=== PATIENT | female | born 1945 | race Caucasian/White ===

== ENCOUNTER → 2019-08-12 17:30 | Outpatient (CLI) | payer MEDICARE, BC, SELFPAY ==
[2019-08-12 18:13] LABS: AST(SGOT) 23 U/L (15-37); Absolute Lymphocyte Count 2.89 X10^3/uL (0.83-4.51); Absolute Neutrophil Count 4.2 X10^3/uL (2.0-7.7); Alanine Aminotransfer ALT/SGPT 30 U/L (13-56); Alkaline Phosphatase 111 U/L (45-117); Anion Gap 5 (5-15); BUN 18 mg/dL (7-18); Basophil# 0.08 X10^3/uL; Calcium,Total 9.3 mg/dL (8.5-10.1); Chloride 105 mmol/L (98-107); Creatinine, Serum 0.75 mg/dL (0.55-1.02); EST Glomerular Filtration Rate 80 mL/min (>60); Eosinophil# 0.21 X10^3/uL; Eosinophils% 2.6 % (0-5); Est Glom Filt Rate - Afr Amer 97 mL/min (>60); Glucose 92 mg/dL (74-106); Hematocrit 46.5 % (37-47); Hemoglobin 15.3 g/dL (12.0-15.0); Lymphocyte # 2.89 X10^3/ul (4.0); Lymphocyte % 35.6 % (19-41); Mean Corp Hgb Conc 32.9 g/dL (32-36); Mean Corpuscular Hgb 30.9 pg (27.0-32.0); Mean Corpuscular Volume 93.9 fL (81-99); Mean Platelet Vol. 11.4 fl (6.2-12.0); Monocyte# 0.73 X10^3/uL; NRBC Flagged by Analyzer 0 % (0-5); Neutrophil # 4.19 X10^3/uL (2.7-7.7); Neutrophil % 51.6 % (47-70); Platelet Count 243 K/mm3 (150-450); Potassium 3.9 mmol/L (3.5-5.1); RBC Distribution Width CV 12.6 % (11.6-14.6); RBC Distribution Width SD 43.6 fl (35.1-43.9); Red Blood Count 4.95 M/mm3 (4.2-5.4); Sodium Level 140 mmol/L (136-145); White Blood Count 8.1 K/mm3 (4.4-11.0)
[2019-08-13 09:43] LABS: Hepatitis C Antibody Non-Reactive (Nonreactive)
== END ==
PROVIDERS: Visit Provider Family Medicine Geriatric Medicine
DX: R53.83 Other fatigue (principal); Z13.89 Encounter for screening for other disorder
CPT/HCPCS: 36415; 80053; 84443; 85025; 86803

== ENCOUNTER → 2019-08-25 10:22 | Outpatient (CLI) | payer MEDICARE, BC, SELFPAY ==
[2019-08-25 12:32] LABS: Erythrocyte Sedimentation Rate 22 mm/hr (0-30)
[2019-08-25 12:42] LABS: Absolute Neutrophil Count 4.3 X10^3/uL (2.0-7.7); Basophil# 0.08 X10^3/uL; Basophil% 1.1 % (0-1); Eosinophil# 0.14 X10^3/uL; Eosinophils% 1.9 % (0-5); Hematocrit 45.7 % (37-47); Lymphocyte % 30.1 % (19-41); Mean Corp Hgb Conc 32.8 g/dL (32-36); Mean Corpuscular Hgb 30.9 pg (27.0-32.0); Mean Platelet Vol. 11.8 fl (6.2-12.0); Monocyte# 0.63 X10^3/uL; Monocyte% 8.6 % (0-10); NRBC Flagged by Analyzer 0 % (0-5); Neutrophil # 4.25 X10^3/uL (2.7-7.7); Platelet Count 237 K/mm3 (150-450); RBC Distribution Width CV 12.6 % (11.6-14.6); RBC Distribution Width SD 43.1 fl (35.1-43.9); Red Blood Count 4.86 M/mm3 (4.2-5.4); White Blood Count 7.3 K/mm3 (4.4-11.0)
[2019-08-25 12:53] LABS: ALB/GLOB Ratio 1.3 RATIO (0.9-2.4); AST(SGOT) 23 U/L (15-37); Alanine Aminotransfer ALT/SGPT 34 U/L (13-56); Albumin, Serum 4.3 g/dL (3.2-5.0); Alkaline Phosphatase 101 U/L (45-117); Anion Gap 8 (5-15); BUN 21 mg/dL (7-18); BUN/Creat Ratio 31.6 RATIO (10-20); CRP < 2.90 mg/L (0.0-3.0); Calcium,Total 9.4 mg/dL (8.5-10.1); Chloride 105 mmol/L (98-107); Creatinine, Serum 0.66 mg/dL (0.55-1.02); EST Glomerular Filtration Rate 92 mL/min (>60); Est Glom Filt Rate - Afr Amer 112 mL/min (>60); Globulin 3.4 g/dL (2.2-4.2); Glucose 87 mg/dL (74-106); Potassium 4.1 mmol/L (3.5-5.1); Protein, Total 7.7 g/dL (6.4-8.2); Rheumatoid Factor < 10.0 IU/mL (<15); Sodium Level 140 mmol/L (136-145)
[2019-08-25 13:23] LABS: Hepatitis B Surface Antibody Non-Reactive; Hepatitis B Surface Antigen Non-Reactive (Nonreactive); Hepatitis C Antibody Non-Reactive (Nonreactive)
[2019-08-26 19:13] LABS: SJOGREN'S Anti-SS-A test < 0.2 AI (0.0-0.9); SJOGREN'S Anti-SS-B test < 0.2 AI (0.0-0.9)
[2019-08-27 13:11] LABS: CCP IgG Antibodies 7 units (0-19); Hepatitis B Core AB IgM Negative (Negative)
[2019-08-27 13:18] LABS: ANTINUCLEAR ANTIBODIES DIRECT Negative (Negative)
== END ==
PROVIDERS: Family Provider Family Medicine Geriatric Medicine; PCP Family Medicine Geriatric Medicine; Referring Provider Internal Medicine Rheumatology; Visit Provider Internal Medicine Rheumatology
DX: M06.4 Inflammatory polyarthropathy (principal); M19.041 Primary osteoarthritis, right hand; M17.0 Bilateral primary osteoarthritis of knee; M47.897 Other spondylosis, lumbosacral region; K21.9 Gastro-esophageal reflux disease without esophagitis
CPT/HCPCS: 36415; 80053; 85025; 85652; 86038; 86140; 86200; 86235; 86431; 86705; 86706; 86803; 87340

== ENCOUNTER → 2019-10-06 09:37 | Outpatient (CLI) | payer MEDICARE, BC, SELFPAY ==
[2019-10-06 10:34] LABS: Thyroid Stim Hormone (TSH) 0.16 uIU/mL (0.358-3.74)
== END ==
PROVIDERS: Family Provider Family Medicine Geriatric Medicine; PCP Family Medicine Geriatric Medicine; Visit Provider Family Medicine Geriatric Medicine
DX: E03.9 Hypothyroidism, unspecified (principal)
CPT/HCPCS: 36415; 84443

== ENCOUNTER → 2019-10-20 09:25 | Outpatient (CLI) | payer MEDICARE, BC, SELFPAY ==
[2019-10-20 12:34] LABS: ALB/GLOB Ratio 1.1 RATIO (0.9-2.4); AST(SGOT) 23 U/L (15-37); Alanine Aminotransfer ALT/SGPT 36 U/L (13-56); Albumin, Serum 3.9 g/dL (3.2-5.0); Alkaline Phosphatase 93 U/L (45-117); Anion Gap 7 (5-15); BUN 23 mg/dL (7-18); BUN/Creat Ratio 34.1 RATIO (10-20); Calcium,Total 9.4 mg/dL (8.5-10.1); Chloride 108 mmol/L (98-107); Creatinine, Serum 0.67 mg/dL (0.55-1.02); EST Glomerular Filtration Rate 91 mL/min (>60); Est Glom Filt Rate - Afr Amer 110 mL/min (>60); Globulin 3.6 g/dL (2.2-4.2); Glucose 106 mg/dL (74-106); Potassium 3.8 mmol/L (3.5-5.1); Protein, Total 7.5 g/dL (6.4-8.2); Sodium Level 142 mmol/L (136-145); Thyroid Stim Hormone (TSH) 0.26 uIU/mL (0.358-3.74)
[2019-10-20 12:36] LABS: Absolute Lymphocyte Count 2.25 X10^3/uL (0.83-4.51); Basophil# 0.07 X10^3/uL; Eosinophils% 2.8 % (0-5); Hematocrit 44.8 % (37-47); Hemoglobin 14.5 g/dL (12.0-15.0); Lymphocyte # 2.25 X10^3/ul (4.0); Lymphocyte % 31.4 % (19-41); Mean Corp Hgb Conc 32.4 g/dL (32-36); Mean Corpuscular Hgb 30.7 pg (27.0-32.0); Mean Corpuscular Volume 94.7 fL (81-99); Mean Platelet Vol. 11.8 fl (6.2-12.0); Monocyte# 0.65 X10^3/uL; Monocyte% 9.1 % (0-10); NRBC Flagged by Analyzer 0 % (0-5); Neutrophil # 3.98 X10^3/uL (2.7-7.7); Neutrophil % 55.4 % (47-70); Platelet Count 236 K/mm3 (150-450); RBC Distribution Width CV 13.5 % (11.6-14.6); RBC Distribution Width SD 46.9 fl (35.1-43.9); Red Blood Count 4.73 M/mm3 (4.2-5.4); White Blood Count 7.2 K/mm3 (4.4-11.0)
== END ==
PROVIDERS: Family Provider Family Medicine Geriatric Medicine; PCP Family Medicine Geriatric Medicine; Referring Provider Family Medicine Geriatric Medicine; Visit Provider Family Medicine Geriatric Medicine
DX: E03.9 Hypothyroidism, unspecified (principal); M06.4 Inflammatory polyarthropathy; M19.041 Primary osteoarthritis, right hand; M17.0 Bilateral primary osteoarthritis of knee
CPT/HCPCS: 36415; 80053; 84443; 85025

== ENCOUNTER → 2020-04-14 13:24 | Outpatient (CLI) | payer MEDICARE, BC, SELFPAY ==
[2020-04-14 15:54] LABS: Absolute Lymphocyte Count 2.13 X10^3/uL (0.83-4.51); Absolute Neutrophil Count 4.5 X10^3/uL (2.0-7.7); Basophil# 0.09 X10^3/uL; Basophil% 1.2 % (0-1); Eosinophil# 0.27 X10^3/uL; Eosinophils% 3.5 % (0-5); Hematocrit 43.7 % (37-47); Hemoglobin 14.2 g/dL (12.0-15.0); Lymphocyte # 2.13 X10^3/ul (4.0); Lymphocyte % 27.4 % (19-41); Mean Corp Hgb Conc 32.5 g/dL (32-36); Mean Corpuscular Hgb 30.8 pg (27.0-32.0); Mean Corpuscular Volume 94.8 fL (81-99); Mean Platelet Vol. 11.8 fl (6.2-12.0); Monocyte# 0.75 X10^3/uL; Monocyte% 9.6 % (0-10); NRBC Flagged by Analyzer 0 % (0-5); Neutrophil # 4.52 X10^3/uL (2.7-7.7); Platelet Count 266 K/mm3 (150-450); RBC Distribution Width CV 13.5 % (11.6-14.6); RBC Distribution Width SD 46.3 fl (35.1-43.9); Red Blood Count 4.61 M/mm3 (4.2-5.4); White Blood Count 7.8 K/mm3 (4.4-11.0)
[2020-04-14 16:09] LABS: Vitamin D,25 Hydroxy 79.5 ng/mL
[2020-04-14 16:22] LABS: AST(SGOT) 26 U/L (15-37); Alanine Aminotransfer ALT/SGPT 42 U/L (13-56); Albumin, Serum 3.9 g/dL (3.2-5.0); Alkaline Phosphatase 96 U/L (45-117); Anion Gap 8 (5-15); BUN 23 mg/dL (7-18); BUN/Creat Ratio 30.3 RATIO (10-20); Calcium,Total 9.4 mg/dL (8.5-10.1); Chloride 106 mmol/L (98-107); Creatinine, Serum 0.76 mg/dL (0.55-1.02); EST Glomerular Filtration Rate 79 mL/min (>60); Est Glom Filt Rate - Afr Amer 96 mL/min (>60); Globulin 3.9 g/dL (2.2-4.2); Glucose 109 mg/dL (74-106); Potassium 3.8 mmol/L (3.5-5.1); Protein, Total 7.8 g/dL (6.4-8.2); Sodium Level 140 mmol/L (136-145); Thyroid Stim Hormone (TSH) 0.08 uIU/mL (0.358-3.74)
== END ==
PROVIDERS: PCP Family Medicine Geriatric Medicine; Visit Provider Family Medicine Geriatric Medicine
DX: E55.9 Vitamin D deficiency, unspecified (principal); I10 Essential (primary) hypertension
CPT/HCPCS: 36415; 80053; 82306; 84443; 85025

== ENCOUNTER → 2020-05-17 15:19 | Outpatient (CLI) | payer MEDICARE, BC, SELFPAY ==
[2020-05-17 18:00] LABS: ALB/GLOB Ratio 1.1 RATIO (0.9-2.4); AST(SGOT) 21 U/L (15-37); Alanine Aminotransfer ALT/SGPT 36 U/L (13-56); Albumin, Serum 3.8 g/dL (3.2-5.0); Alkaline Phosphatase 87 U/L (45-117); Anion Gap 5 (5-15); BUN 20 mg/dL (7-18); BUN/Creat Ratio 30.1 RATIO (10-20); Calcium,Total 8.9 mg/dL (8.5-10.1); Chloride 105 mmol/L (98-107); Creatinine, Serum 0.66 mg/dL (0.55-1.02); EST Glomerular Filtration Rate 92 mL/min (>60); Est Glom Filt Rate - Afr Amer 112 mL/min (>60); Globulin 3.5 g/dL (2.2-4.2); Glucose 117 mg/dL (74-106); Potassium 3.7 mmol/L (3.5-5.1); Protein, Total 7.3 g/dL (6.4-8.2); Sodium Level 138 mmol/L (136-145)
[2020-05-17 18:13] LABS: Absolute Lymphocyte Count 2.45 X10^3/uL (0.83-4.51); Absolute Neutrophil Count 4.3 X10^3/uL (2.0-7.7); Basophil# 0.06 X10^3/uL; Basophil% 0.8 % (0-1); Eosinophil# 0.25 X10^3/uL; Eosinophils% 3.3 % (0-5); Hematocrit 43.3 % (37-47); Hemoglobin 13.8 g/dL (12.0-15.0); Lymphocyte # 2.45 X10^3/ul (4.0); Lymphocyte % 31.9 % (19-41); Mean Corp Hgb Conc 31.9 g/dL (32-36); Mean Corpuscular Hgb 30.8 pg (27.0-32.0); Mean Corpuscular Volume 96.7 fL (81-99); Mean Platelet Vol. 11.8 fl (6.2-12.0); Monocyte# 0.61 X10^3/uL; Monocyte% 7.9 % (0-10); NRBC Flagged by Analyzer 0 % (0-5); Neutrophil # 4.31 X10^3/uL (2.7-7.7); Platelet Count 245 K/mm3 (150-450); RBC Distribution Width SD 49.4 fl (35.1-43.9); Red Blood Count 4.48 M/mm3 (4.2-5.4); White Blood Count 7.7 K/mm3 (4.4-11.0)
== END ==
PROVIDERS: PCP Family Medicine Geriatric Medicine; Referring Provider Internal Medicine Rheumatology; Visit Provider Internal Medicine Rheumatology
DX: M06.4 Inflammatory polyarthropathy (principal); Z79.899 Other long term (current) drug therapy; M19.041 Primary osteoarthritis, right hand; M17.0 Bilateral primary osteoarthritis of knee; K21.9 Gastro-esophageal reflux disease without esophagitis; E03.9 Hypothyroidism, unspecified; I10 Essential (primary) hypertension; F32.9 Major depressive disorder, single episode, unspecified; M47.897 Other spondylosis, lumbosacral region
CPT/HCPCS: 36415; 80053; 85025

== ENCOUNTER → 2020-08-17 14:09 | Outpatient (CLI) | payer MEDICARE, BC, SELFPAY ==
[2020-08-17 18:21] LABS: Absolute Lymphocyte Count 2.11 X10^3/uL (0.83-4.51); Absolute Neutrophil Count 4.4 X10^3/uL (2.0-7.7); Basophil# 0.08 X10^3/uL; Basophil% 1.1 % (0-1); Eosinophil# 0.23 X10^3/uL; Eosinophils% 3.1 % (0-5); Hematocrit 44.9 % (37-47); Hemoglobin 14.3 g/dL (12.0-15.0); Lymphocyte # 2.11 X10^3/ul (4.0); Lymphocyte % 28.2 % (19-41); Mean Corp Hgb Conc 31.8 g/dL (32-36); Mean Corpuscular Hgb 31.3 pg (27.0-32.0); Mean Corpuscular Volume 98.2 fL (81-99); Mean Platelet Vol. 11.9 fl (6.2-12.0); Monocyte# 0.61 X10^3/uL; Monocyte% 8.2 % (0-10); NRBC Flagged by Analyzer 0 % (0-5); Neutrophil # 4.42 X10^3/uL (2.7-7.7); Neutrophil % 59.1 % (47-70); Platelet Count 272 K/mm3 (150-450); RBC Distribution Width CV 13.7 % (11.6-14.6); RBC Distribution Width SD 49.2 fl (35.1-43.9); Red Blood Count 4.57 M/mm3 (4.2-5.4); White Blood Count 7.5 K/mm3 (4.4-11.0)
[2020-08-17 18:49] LABS: Vitamin D,25 Hydroxy 139.6 ng/mL
[2020-08-17 19:14] LABS: ALB/GLOB Ratio 1.1 RATIO (0.9-2.4); AST(SGOT) 21 U/L (15-37); Alanine Aminotransfer ALT/SGPT 43 U/L (13-56); Albumin, Serum 4.1 g/dL (3.2-5.0); Alkaline Phosphatase 98 U/L (45-117); Anion Gap 5 (5-15); BUN 23 mg/dL (7-18); BUN/Creat Ratio 31.8 RATIO (10-20); Calcium,Total 9.5 mg/dL (8.5-10.1); Chloride 104 mmol/L (98-107); Creatinine, Serum 0.72 mg/dL (0.55-1.02); EST Glomerular Filtration Rate 83 mL/min (>60); Est Glom Filt Rate - Afr Amer 101 mL/min (>60); Globulin 3.7 g/dL (2.2-4.2); Glucose 121 mg/dL (74-106); Potassium 3.6 mmol/L (3.5-5.1); Protein, Total 7.8 g/dL (6.4-8.2); Sodium Level 138 mmol/L (136-145); Thyroid Stim Hormone (TSH) 0.26 uIU/mL (0.358-3.74)
== END ==
PROVIDERS: PCP Family Medicine Geriatric Medicine; Visit Provider Family Medicine Geriatric Medicine
DX: I10 Essential (primary) hypertension (principal); E55.9 Vitamin D deficiency, unspecified
CPT/HCPCS: 36415; 80053; 82306; 84443; 85025

== ENCOUNTER → 2020-08-18 | Outpatient (CLI) | payer MEDICARE, BC, SELFPAY ==
[2020-08-18 15:16] LABS: Absolute Neutrophil Count 4.6 X10^3/uL (2.0-7.7); Basophil# 0.11 X10^3/uL; Basophil% 1.5 % (0-1); Eosinophil# 0.23 X10^3/uL; Eosinophils% 3.1 % (0-5); Hematocrit 45.4 % (37-47); Hemoglobin 14.2 g/dL (12.0-15.0); Lymphocyte % 24.2 % (19-41); Mean Corp Hgb Conc 31.3 g/dL (32-36); Mean Corpuscular Hgb 31.1 pg (27.0-32.0); Mean Corpuscular Volume 99.6 fL (81-99); Mean Platelet Vol. 11.8 fl (6.2-12.0); Monocyte# 0.73 X10^3/uL; Monocyte% 9.8 % (0-10); NRBC Flagged by Analyzer 0 % (0-5); Neutrophil # 4.56 X10^3/uL (2.7-7.7); Neutrophil % 61.3 % (47-70); Platelet Count 263 K/mm3 (150-450); RBC Distribution Width CV 13.8 % (11.6-14.6); RBC Distribution Width SD 50.1 fl (35.1-43.9); Red Blood Count 4.56 M/mm3 (4.2-5.4); White Blood Count 7.4 K/mm3 (4.4-11.0)
[2020-08-18 15:44] LABS: ALB/GLOB Ratio 1.1 RATIO (0.9-2.4); AST(SGOT) 20 U/L (15-37); Alanine Aminotransfer ALT/SGPT 38 U/L (13-56); Albumin, Serum 4.1 g/dL (3.2-5.0); Alkaline Phosphatase 102 U/L (45-117); Anion Gap 3 (5-15); BUN 24 mg/dL (7-18); BUN/Creat Ratio 35.5 RATIO (10-20); Calcium,Total 9.5 mg/dL (8.5-10.1); Chloride 103 mmol/L (98-107); Creatinine, Serum 0.68 mg/dL (0.55-1.02); EST Glomerular Filtration Rate 90 mL/min (>60); Est Glom Filt Rate - Afr Amer 109 mL/min (>60); Globulin 3.7 g/dL (2.2-4.2); Glucose 92 mg/dL (74-106); Potassium 3.8 mmol/L (3.5-5.1); Protein, Total 7.8 g/dL (6.4-8.2); Sodium Level 136 mmol/L (136-145)
== END | disposition home or self-care (01) ==
LOC: MTLAB 11:25
PROVIDERS: PCP Family Medicine Geriatric Medicine; Referring Provider Internal Medicine Rheumatology; Visit Provider Internal Medicine Rheumatology
DX: M06.4 Inflammatory polyarthropathy (principal); M19.041 Primary osteoarthritis, right hand; M17.0 Bilateral primary osteoarthritis of knee; K21.9 Gastro-esophageal reflux disease without esophagitis; E03.9 Hypothyroidism, unspecified; I10 Essential (primary) hypertension; F32.9 Major depressive disorder, single episode, unspecified; M47.897 Other spondylosis, lumbosacral region; Z79.899 Other long term (current) drug therapy
CPT/HCPCS: 36415; 80053; 85025

== ENCOUNTER → 2020-10-04 09:47 | Outpatient (CLI) | payer MEDICARE, BC, SELFPAY ==
[2020-10-04 12:35] LABS: Thyroid Stim Hormone (TSH) 0.64 uIU/mL (0.358-3.74)
== END ==
PROVIDERS: PCP Family Medicine Geriatric Medicine; Visit Provider Family Medicine Geriatric Medicine
DX: E03.9 Hypothyroidism, unspecified (principal)
CPT/HCPCS: 36415; 84443

== ENCOUNTER → 2020-11-08 10:53 | Outpatient (CLI) | payer MEDICARE, BC, SELFPAY ==
[2020-11-08 12:31] LABS: Absolute Lymphocyte Count 1.81 X10^3/uL (0.83-4.51); Absolute Neutrophil Count 4.1 X10^3/uL (2.0-7.7); Basophil# 0.07 X10^3/uL; Hematocrit 43.3 % (37-47); Hemoglobin 13.7 g/dL (12.0-15.0); Lymphocyte # 1.81 X10^3/ul (4.0); Mean Corp Hgb Conc 31.6 g/dL (32-36); Mean Corpuscular Hgb 31.1 pg (27.0-32.0); Mean Corpuscular Volume 98.4 fL (81-99); Mean Platelet Vol. 11.7 fl (6.2-12.0); Monocyte# 0.53 X10^3/uL; Monocyte% 7.9 % (0-10); NRBC Flagged by Analyzer 0 % (0-5); Neutrophil # 4.07 X10^3/uL (2.7-7.7); Neutrophil % 60.8 % (47-70); Platelet Count 243 K/mm3 (150-450); RBC Distribution Width CV 13.6 % (11.6-14.6); RBC Distribution Width SD 49.2 fl (35.1-43.9); White Blood Count 6.7 K/mm3 (4.4-11.0)
[2020-11-08 13:08] LABS: ALB/GLOB Ratio 1.1 RATIO (0.9-2.4); AST(SGOT) 22 U/L (15-37); Alanine Aminotransfer ALT/SGPT 32 U/L (13-56); Albumin, Serum 3.9 g/dL (3.2-5.0); Alkaline Phosphatase 91 U/L (45-117); Anion Gap 8 (5-15); BUN 25 mg/dL (7-18); BUN/Creat Ratio 38.4 RATIO (10-20); Calcium,Total 9.2 mg/dL (8.5-10.1); Chloride 105 mmol/L (98-107); Creatinine, Serum 0.65 mg/dL (0.55-1.02); EST Glomerular Filtration Rate 94 mL/min (>60); Est Glom Filt Rate - Afr Amer 114 mL/min (>60); Globulin 3.4 g/dL (2.2-4.2); Glucose 108 mg/dL (74-106); Potassium 3.8 mmol/L (3.5-5.1); Protein, Total 7.3 g/dL (6.4-8.2); Sodium Level 139 mmol/L (136-145)
== END ==
PROVIDERS: PCP Family Medicine Geriatric Medicine; Referring Provider Internal Medicine Rheumatology; Visit Provider Internal Medicine Rheumatology
DX: M06.4 Inflammatory polyarthropathy (principal); Z79.899 Other long term (current) drug therapy; M19.041 Primary osteoarthritis, right hand; M17.0 Bilateral primary osteoarthritis of knee; K21.9 Gastro-esophageal reflux disease without esophagitis; E03.9 Hypothyroidism, unspecified; I10 Essential (primary) hypertension; F32.9 Major depressive disorder, single episode, unspecified; M47.897 Other spondylosis, lumbosacral region
CPT/HCPCS: 36415; 80053; 85025

== ENCOUNTER → 2021-02-24 09:59 | Outpatient (CLI) | payer MEDICARE, SELFPAY ==
--- NOTE | 2021-02-24 10:15 | RAD_ITS ---
STUDY: X-RAY - LUMBAR SPINE REASON FOR EXAM: Female, 75 years old. LOW BACK PAIN TECHNIQUE: 3 view(s) of the lumbar spine were obtained. COMPARISON: None FINDINGS: Normal lumbar lordosis. There is no substantial scoliosis. There is a normal alignment of the vertebrae. There is multilevel endplate spondylosis of the lumbar vertebrae. There is multi-level degenerative disc disease with multi-level disc space narrowing. There is no demonstrated fracture. The soft tissue structures are unremarkable. RAD/Lumbar Spine 2 or 3 Views IMPRESSION: Degenerative changes of the spine, as detailed above. Electronically Signed: Cornelio Rocha MD at 10:53 EDT , Service support ,
== END ==
PROVIDERS: PCP Family Medicine Geriatric Medicine; Visit Provider Family Medicine Geriatric Medicine
DX: M54.5 Low back pain (principal)
CPT/HCPCS: 72100

== ENCOUNTER → 2021-02-28 07:41 | Outpatient (CLI) | payer MEDICARE, SELFPAY ==
[2021-02-28 10:07] LABS: Absolute Lymphocyte Count 1.77 X10^3/uL (0.83-4.51); Absolute Neutrophil Count 9.2 X10^3/uL (2.0-7.7); Basophil# 0.04 X10^3/uL; Basophil% 0.3 % (0-1); Eosinophil# 0.02 X10^3/uL; Eosinophils% 0.2 % (0-5); Hematocrit 43.9 % (37-47); Hemoglobin 14.4 g/dL (12.0-15.0); Lymphocyte # 1.77 X10^3/ul (4.0); Mean Corp Hgb Conc 32.8 g/dL (32-36); Mean Corpuscular Hgb 31.6 pg (27.0-32.0); Mean Corpuscular Volume 96.5 fL (81-99); Mean Platelet Vol. 11.8 fl (6.2-12.0); Monocyte# 0.71 X10^3/uL; NRBC Flagged by Analyzer 0 % (0-5); Neutrophil # 9.17 X10^3/uL (2.7-7.7); Neutrophil % 77.6 % (47-70); Platelet Count 313 K/mm3 (150-450); RBC Distribution Width CV 13.4 % (11.6-14.6); RBC Distribution Width SD 47.8 fl (35.1-43.9); Red Blood Count 4.55 M/mm3 (4.2-5.4); White Blood Count 11.8 K/mm3 (4.4-11.0)
[2021-02-28 10:45] LABS: ALB/GLOB Ratio 1.1 RATIO (0.9-2.4); AST(SGOT) 11 U/L (15-37); Alanine Aminotransfer ALT/SGPT 26 U/L (13-56); Alkaline Phosphatase 93 U/L (45-117); Anion Gap 5 (5-15); BUN 29 mg/dL (7-18); BUN/Creat Ratio 40.4 RATIO (10-20); Calcium,Total 9.6 mg/dL (8.5-10.1); Chloride 105 mmol/L (98-107); Creatinine, Serum 0.72 mg/dL (0.55-1.02); EST Glomerular Filtration Rate 84 mL/min (>60); Est Glom Filt Rate - Afr Amer 102 mL/min (>60); Globulin 3.5 g/dL (2.2-4.2); Glucose 158 mg/dL (74-106); Potassium 3.9 mmol/L (3.5-5.1); Protein, Total 7.5 g/dL (6.4-8.2); Sodium Level 137 mmol/L (136-145)
== END ==
PROVIDERS: PCP Family Medicine Geriatric Medicine; Referring Provider Internal Medicine Rheumatology; Visit Provider Internal Medicine Rheumatology
DX: M06.4 Inflammatory polyarthropathy (principal); Z79.899 Other long term (current) drug therapy; M19.041 Primary osteoarthritis, right hand; M17.0 Bilateral primary osteoarthritis of knee; K21.9 Gastro-esophageal reflux disease without esophagitis; E03.9 Hypothyroidism, unspecified; I10 Essential (primary) hypertension; F32.9 Major depressive disorder, single episode, unspecified; M47.897 Other spondylosis, lumbosacral region
CPT/HCPCS: 36415; 80053; 85025

== ENCOUNTER → 2021-03-02 14:53 | Outpatient (CLI) | payer MEDICARE, SELFPAY ==
[2021-03-02 16:16] LABS: Absolute Lymphocyte Count 0.91 X10^3/uL (0.83-4.51); Absolute Neutrophil Count 11.8 X10^3/uL (2.0-7.7); Basophil# 0.04 X10^3/uL; Basophil% 0.3 % (0-1); Hematocrit 43.9 % (37-47); Lymphocyte # 0.91 X10^3/ul (0.83-4.51); Lymphocyte % 6.8 % (19-41); Mean Corp Hgb Conc 31.9 g/dL (32-36); Mean Corpuscular Hgb 30.8 pg (27.0-32.0); Mean Corpuscular Volume 96.7 fL (81-99); Mean Platelet Vol. 11.8 fl (6.2-12.0); Monocyte# 0.64 X10^3/uL; Monocyte% 4.8 % (0-10); NRBC Flagged by Analyzer 0 % (0-5); Neutrophil # 11.75 X10^3/uL (2.7-7.7); Neutrophil % 87.1 % (47-70); Platelet Count 308 K/mm3 (150-450); RBC Distribution Width CV 13.6 % (11.6-14.6); RBC Distribution Width SD 48.1 fl (35.1-43.9); Red Blood Count 4.54 M/mm3 (4.2-5.4); White Blood Count 13.5 K/mm3 (4.4-11.0)
[2021-03-02 16:34] LABS: ALB/GLOB Ratio 1.2 RATIO (0.9-2.4); AST(SGOT) 13 U/L (15-37); Alanine Aminotransfer ALT/SGPT 26 U/L (13-56); Albumin, Serum 3.9 g/dL (3.2-5.0); Alkaline Phosphatase 90 U/L (45-117); Anion Gap 6 (5-15); BUN 31 mg/dL (7-18); BUN/Creat Ratio 34.5 RATIO (10-20); Calcium,Total 9.2 mg/dL (8.5-10.1); Chloride 105 mmol/L (98-107); EST Glomerular Filtration Rate 65 mL/min (>60); Est Glom Filt Rate - Afr Amer 79 mL/min (>60); Globulin 3.3 g/dL (2.2-4.2); Glucose 164 mg/dL (74-106); Protein, Total 7.2 g/dL (6.4-8.2); Sodium Level 137 mmol/L (136-145); Thyroid Stim Hormone (TSH) 0.12 uIU/mL (0.358-3.74)
[2021-03-03 11:06] LABS: Hemoglobin A1c 5.7 % (3.8-5.6)
== END ==
PROVIDERS: PCP Family Medicine Geriatric Medicine; Visit Provider Family Medicine Geriatric Medicine
DX: R73.09 Other abnormal glucose (principal); E55.9 Vitamin D deficiency, unspecified; I10 Essential (primary) hypertension
CPT/HCPCS: 36415; 80053; 82306; 83036; 84443; 85025

== ENCOUNTER → 2021-04-20 10:36 | Outpatient (CLI) | payer MEDICARE, SELFPAY ==
[2021-04-20 12:35] LABS: Thyroid Stim Hormone (TSH) 2.29 uIU/mL (0.358-3.74)
== END ==
PROVIDERS: PCP Family Medicine Geriatric Medicine; Visit Provider Family Medicine Geriatric Medicine
DX: E03.9 Hypothyroidism, unspecified (principal)
CPT/HCPCS: 36415; 84443

== ENCOUNTER 2021-04-21 09:00 | Outpatient (RCR) | payer MEDICARE, SELFPAY ==
--- NOTE | 2021-03-21 14:50 | HP.PTEVAL ---
Patient's Visit Information ANUSHA ALDRICH is a 75 year old F referred to Physical Therapy by Dr. Aquilino Pierre MD with a diagnosis of LBP. Date of Evaluation: 03/21/21 Physical Therapist: Olivia Villanueva PT, Cert MDT - Visit Plan Frequency: 2-3x /Week Duration: 4-6 Weeks Plan: ULTRASOUND, POSTURE CORRECTION/STRENGTHENING, INSTRUCTION IN APPROPRIATE BODY MECHANICS AND ACTIVITY MODIFICATIONS. DLS STARTING WITH A NEUTRAL SPINE PROGRESSING ROM TOLERATED. DEEDEE LE ROM, STRETCHING AND STRENGTHENING. HEP INSTRUCTION. CONSIDER AQUATIC THERAPY. - Subjective Work/Leisure: RETIRED. Disability: NO. Present symptoms: LOW BACK PAIN AND LEFT HIP PAIN. CURRENTLY NO OTHER LEG SX'S BUT L LEG SX'S RECENT A FEW WEEKS AGO. Present since: February. Pain Scale: WORST 9/10, LEAST 1/10. Currently: 1/10 - FOR THE LAST WEEK SX'S ARE UNCHANGING. Commenced as a result of: NO APPARENT REASON. GOT OUT OF THE CAR AND SUDDENTLY HAD SHARP PAIN GOING FROM THE L HIP TO THE TOES. PAIN AND NAUSEA A RESULT. HAD BEEN TRAVELING BACK HOME FROM [place] - IN THE CAR FOR 2 AND 1/2 DAYS. Worse: STANDING OR WALKING FOR ANY TIME OR DISTANCE - HAS TO WALK CAUTIOUSLY WITH SMALL STEPS, VACUUMING, TWISTING. Better: EX'S GIVEN BY DR. PIERRE, STEROID, MUSCLE RELAXER, TYLONOL ARTHRITIS. LYING DOWN. Disturbed sleep: NO. Previous history/Previous treatment: NO BACK SURGERY. NO AJAY'S. NO CHIROPRACTOR. Treatment this episode: MEDICATION AND EX'S GIVEN BY DR. PIERRE. NO INJECTIONS. SHAKILA'T PENDING WITH DR. GREENE May. Coughing/sneezing/straining: NEGATIVE. Gait: PATIENT REPORTS SHE HAS TO WALK SLOW AND TAKE SMALL STEPS TO AVOID PAIN. STATES IT IS DIFFICULT TO WALK ABOUT 1/4 MILE. NO ASSISTIVE DEVICES NOW BUT TAKES A CANE AND USES IT SOMETIMES TO RELIEVE PRESSURE. Difficulty initiating urinatin: NO. Accidents: NO. Unexplained weight loss: NO. Imaging: RECENT LUMBAR X-RAYS: FINDINGS: Normal lumbar lordosis. There is no substantial scoliosis. There is a. normal alignment of the vertebrae. There is multilevel endplate spondylosis of the lumbar vertebrae. There is. multi-level degenerative disc disease with multi-level disc space. narrowing. There is no demonstrated fracture. The soft tissue structures are unremarkable. . RAD/Lumbar Spine 2 or 3 Views. IMPRESSION: Degenerative changes of the spine, as detailed above. . PMH/Recent major surgery: R TKR, R SHLD SX, MAJOR FOOT SX DEEDEE. RA DX'D ABOUT 2-3 YEARS AGO, HTN, HIGH CHOLESTEROL. DIZZINESS. BALANCE PROBLEMS SINCE CHILDHOOD. - Objective Sitting/Standing Posture: POOR. INCREASED LORDOSIS. NO LATERAL SHIFT. Active Correction of posture: BETTER. Other Observations: INDEP TRANSFER SIT TO STAND WITHOUT UE ASSIST. INDEP GAIT WITHOUT ASSISTIVE DEVICE WITH DECREASED DEEDEE STRIDE LENGTH AND MILD LIMP ON LLE. Motor deficit: RIGHT LE GROSSLY 5/5 WITH MMT'ING EXCEPT HIP GRADED 4/5. LLE : HIP 3+/5, KNEE 4/5 ANKLE 5/5. Sensory deficit: DEEDEE LE LIGHT TOUCH SENSATION INTACT AND SYMMETRICAL. ROM deficit: DEEDEE LE'S WFL BUT TIGHT DEEDEE HIP FLEXORS. Reflexes: UNABLE TO ELICIT DEEDEE LE DTR'S. Dural Signs: NEGATIVE DEEDEE LE'S. Lumbar mvmt loss: flex - NIL. ext - MARISELA - INCRASES LBP. R SG - MIN. L SG - MOD - INCREASES LBP. Core strength: POOR. Palpation: TENDERNESS WITH PALPATION OF THE LUMBAR SPINE INTO THE SACRAL REGION DEEDEE. TREATMENT: NEUROMUSCULAR REEDUCATION - RETRAINING OF MVMT AND POSTURE FOR SITTING, LYING AND STANDING ACTIVITIES. REVIEW OF EX'S GIVEN BY DR. PIERRE AND GAIT TRAINING WITH STRAIGHT CANE. - Goals Goal 1:: DECREASE C/O LOW BACK AND L HIP PAIN. Goal Time Frame: 4-6 Weeks Goal 2:: IMPROVE LIFTING, STANDING, SLEEP, SOCIAL LIFE, TRAVEL AND HOMEMAKING FUNCTION. Goal Time Frame: 4-6 Weeks Goal 3:: INSTRUCT IN PROPHYLAXIS Goal Time Frame: 4-6 Weeks - Anticipated Interventions Patient/Client Instruction: Educate patient on: Condition, Plan of Care, Risk Factors For the Purpose of:: To improve self management Therapeutic Exercise to Include: Strength training, Body mechanics, Postural training, Flexibilty training, Neuromotor development, In an aquatic setting, Dynamic Lumbar Stabilization For the Purpose of:: To decrease pain, To increase ROM, To improve muscle performance and motor function, To increase tolerance to activity/condition/position, To improve ability of physical actions for home/community/work/leisure, To improve gait and locomotor functions Cryotherapy (ice pack, ice massage): Yes Thermo therapy (hot pack): Yes Ultrasound (thermal/non thermal): Yes For the Purpose of:: To decrease pain, To improve nutrient delivery to tissue Thank you for the opportunity to evaluate your patient. For Medicare and Medicare HMO plans, please review the plan of care and approve it. It will need to be FAXED BACK to us at [phone] for Medicare purposes. For Medicare only, by signing this I certify the plan of care. Please let me know if there are questions or concerns regarding this plan of care. Physician Signature: Date:
--- NOTE | 2021-04-21 09:37 | HP.PTDCSUM_ITS ---
It has been my pleasure to treat ANUSHA ALDRICH referred by Dr. Aquilino Pierre MD, with the diagnosis of LBP for a total of 9 visit(s). Discharge Date: 04/21/21 Please see the following information for a summary of their discharge status. Subjective: PATIENT REPORTS SHE IS HAVING A LITTLE RIGHT MID BACK PAIN TODAY FOR NO APPARENT REASON OTHER THAN LIFTING SEWING MACHINE. DOING MORE WALKING. UP TO ABOUT 3/4 MILE. STATES SHE THINKS SHE IS READY TO CONTINUE HER EX'S INDEP'LY. PATIENT REPORTS THERAPY HAS BEEN LIFE SAVING FOR HER AND SHE HOPES TO CONTINUE WITH THE EX'S AND ACTIVITY MODIFICATIONS. LOW BACK PAIN Pain Intensity (Out of 10): 0 % Improvement: 95 Objective/Function: PATIENT WAS SEEN TODAY FOR RE-ASSESSMENT OF PROGRESS TOWARD THE SET PT GOALS AND THE NEED FOR FURTHER PHYSICAL THERAPY VS READINESS FOR DISCHARGE. ALL GOALS MET. PATIENT IS INDEP WITH A HEP AND APPROPRIATE FOR DISCHARGE. UPON EXAM TODAY THERE ARE NO SIGNIFICANT CHANGES WITH TESTING COMPARED TO INITIAL EVAL BUT SHE DOES NOT GET LOW BACK PAIN WITH LUMBAR ROM TESTING NOW AND HER DEEDEE LE STRENGTH HAS IMPROVED AND IS WFL WITH MMT'ING (4- 5/5). PATIENT IS ALSO NO LONGER TENDER WITH PALPATION OF HER LUMBOSACRAL AREA. JUST VERY MILD RIGHT MID BACK TENDERNESS TODAY (SEE ABOVE). Goal 1:: DECREASE C/O LOW BACK AND L HIP PAIN. Goal Progress: Goal Met Goal 2:: IMPROVE LIFTING, STANDING, SLEEP, SOCIAL LIFE, TRAVEL AND HOMEMAKING FUNCTION. Goal Progress: Goal Met Goal 3:: INSTRUCT IN PROPHYLAXIS Goal Progress: Goal Met Plan: D/C TO HEP - PATIENT AGREEABLE If there are questions or concerns regarding this patient's physical therapy, please feel free to call me at [phone]. Thank you for the referral of this patient. Sincerely, Olivia Villanueva, PT, Cert MDT
== END 2021-04-21 19:00 | disposition home or self-care (01) ==
LOC: PT 09:00
PROVIDERS: PCP Family Medicine Geriatric Medicine; Referring Provider Family Medicine Geriatric Medicine; Visit Provider Family Medicine Geriatric Medicine
DX: M54.5 Low back pain (principal)
CPT/HCPCS: 97035; 97110; 97112; 97162; 97164; 97530

== ENCOUNTER → 2021-05-24 08:48 | Outpatient (CLI) | payer MEDICARE, SELFPAY ==
[2021-05-24 10:03] LABS: Absolute Lymphocyte Count 2.36 X10^3/uL (0.83-4.51); Absolute Neutrophil Count 5.2 X10^3/uL (2.0-7.7); Basophil% 1.2 % (0-1); Eosinophil# 0.16 X10^3/uL; Eosinophils% 1.9 % (0-5); Hematocrit 44.9 % (37-47); Hemoglobin 14.7 g/dL (12.0-15.0); Lymphocyte # 2.36 X10^3/ul (0.83-4.51); Lymphocyte % 28.1 % (19-41); Mean Corp Hgb Conc 32.7 g/dL (32-36); Mean Corpuscular Hgb 32.2 pg (27.0-32.0); Mean Corpuscular Volume 98.2 fL (81-99); Mean Platelet Vol. 11.5 fl (6.2-12.0); Monocyte# 0.55 X10^3/uL; Monocyte% 6.5 % (0-10); NRBC Flagged by Analyzer 0 % (0-5); Neutrophil % 61.9 % (47-70); Platelet Count 311 K/mm3 (150-450); RBC Distribution Width CV 14.1 % (11.6-14.6); RBC Distribution Width SD 50.4 fl (35.1-43.9); Red Blood Count 4.57 M/mm3 (4.2-5.4); White Blood Count 8.4 K/mm3 (4.4-11.0)
[2021-05-24 10:32] LABS: ALB/GLOB Ratio 1.1 RATIO (0.9-2.4); AST(SGOT) 21 U/L (15-37); Alanine Aminotransfer ALT/SGPT 33 U/L (13-56); Alkaline Phosphatase 88 U/L (45-117); Anion Gap 6 (5-15); BUN 23 mg/dL (7-18); BUN/Creat Ratio 25.1 RATIO (10-20); Calcium,Total 9.5 mg/dL (8.5-10.1); Chloride 103 mmol/L (98-107); Creatinine, Serum 0.92 mg/dL (0.55-1.02); EST Glomerular Filtration Rate 63 mL/min (>60); Est Glom Filt Rate - Afr Amer 77 mL/min (>60); Globulin 3.6 g/dL (2.2-4.2); Glucose 159 mg/dL (74-106); Potassium 3.5 mmol/L (3.5-5.1); Protein, Total 7.6 g/dL (6.4-8.2); Sodium Level 138 mmol/L (136-145)
== END ==
PROVIDERS: PCP Family Medicine Geriatric Medicine; Referring Provider Internal Medicine Rheumatology; Visit Provider Internal Medicine Rheumatology
DX: M06.4 Inflammatory polyarthropathy (principal); Z79.899 Other long term (current) drug therapy; M19.041 Primary osteoarthritis, right hand; M17.0 Bilateral primary osteoarthritis of knee; K21.9 Gastro-esophageal reflux disease without esophagitis; E03.9 Hypothyroidism, unspecified; I10 Essential (primary) hypertension; F32.9 Major depressive disorder, single episode, unspecified; M47.897 Other spondylosis, lumbosacral region
CPT/HCPCS: 36415; 80053; 85025

== ENCOUNTER 2021-08-12 09:00 | Outpatient (RCR) | payer MEDICARE, SELFPAY ==
--- NOTE | 2021-07-12 09:59 | HP.PTEVAL ---
Patient's Visit Information ANUSHA ALDRICH is a 76 year old F referred to Physical Therapy by Dr. Nicole Pinedo DC with a diagnosis of LUMBOSACRAL DDD, LUMBAR AND PELVIC SEGMENTAL ASOMATIC. Date of Evaluation: 07/12/21 Physical Therapist: Olivia Villanueva PT, Cert MDT - Visit Plan Frequency: 2-3x /Week Duration: 4-6 Weeks Plan: AQUATIC THERAPY FOR PAIN RELIEF, POSTURE CORRECTION/STRENGTHENING, INSTRUCTION IN APPROPRIATE BODY MECHANICS AND ACTIVITY MODIFICATIONS. DLS WITH A NEUTRAL SPINE TOLERATED. DEEDEE LE ROM, STRETCHING AND STRENGTHENING. HEP INSTRUCTION. - Subjective Work/Leisure: RETIRED. Disability: NO. Present symptoms: LOW BACK PAIN. CURRENTLY NO OTHER LEG SX'S BUT L LEG SX'S RECENT . Present since: February. Pain Scale: WORST 4/10, LEAST 0/10. Currently: 1-12/29 Commenced as a result of: NO APPARENT REASON. GOT OUT OF THE CAR AND SUDDENTLY HAD SHARP PAIN GOING FROM THE L HIP TO THE TOES. PAIN AND NAUSEA A RESULT. HAD BEEN TRAVELING BACK HOME FROM [place] - IN THE CAR FOR 2 AND 1/2 DAYS. Worse: STANDING OR WALKING, VACUUMING, TWISTING. CAN WALK MAYBE A MILE WITH LUMBAR BELT. HARD TO WALK FIRST THING IN THE MORNING. Better: PHYSICAL THERAPY EX'S, GABAPENTIN, TYLONOL ARTHRITIS. LYING DOWN. Disturbed sleep: NO. Previous history/Previous treatment: NO BACK SURGERY. NO AJAY'S. CHIROPRACTOR X 6 VISITS APRIL/MAY/JUN - I DIDN'T FEEL THEY HELPED MUCH. Coughing/sneezing/straining: NEGATIVE. Difficulty initiating urinatin: NO. Accidents: NO. Unexplained weight loss: NO. Imaging: RECENT LUMBAR X-RAYS: FINDINGS: Normal lumbar lordosis. There is no substantial scoliosis. There is a. normal alignment of the vertebrae. There is multilevel endplate spondylosis of the lumbar vertebrae. There is. multi-level degenerative disc disease with multi-level disc space. narrowing. There is no demonstrated fracture. The soft tissue structures are unremarkable. . RAD/Lumbar Spine 2 or 3 Views. IMPRESSION: Degenerative changes of the spine, as detailed above. . PMH/Recent major surgery: R TKR, R SHLD SX, MAJOR FOOT SX DEEDEE. RA DX'D ABOUT 2-3 YEARS AGO, HTN, HIGH CHOLESTEROL. DIZZINESS. BALANCE PROBLEMS SINCE CHILDHOOD. - Objective Sitting/Standing Posture: POOR. INCREASED LORDOSIS. NO LATERAL SHIFT. Active Correction of posture: BETTER. Other Observations: INDEP TRANSFER SIT TO STAND WITHOUT UE ASSIST. INDEP GAIT WITHOUT ASSISTIVE DEVICE OR LOB BUT DECREASED CADANCE AND MILD DECREASED STRIDE LENGTH. Motor deficit: RIGHT LE GROSSLY 5/5 WITH MMT'ING EXCEPT HIP GRADED 4/5. LLE : HIP 4-/5, KNEE 4/5 ANKLE 5/5. Sensory deficit: DEEDEE LE LIGHT TOUCH SENSATION INTACT AND SYMMETRICAL. ROM deficit: DEEDEE LE'S WFL BUT TIGHT DEEDEE HIP FLEXORS. Dural Signs: NEGATIVE DEEDEE LE'S. Lumbar mvmt loss: flex - NIL. ext - MOD TO MARISELA AND MILD INCREASE IN LBP. R SG - MIN. L SG - MOD - MILDLY INCREASES LBP. Core strength: POOR. Palpation: MILD TENDERNESS WITH PALPATION OF DEEDEE LATERAL HIP REGIONS. TREATMENT: NEUROMUSCULAR REEDUCATION - RETRAINING OF MVMT AND POSTURE FOR SITTING, LYING AND STANDING ACTIVITIES. REVIEW OF EX'S GIVEN BY THIS PT DURING HER LAST EPISODE OF CARE HERE IN PT AT [facility] - Balance/Special Test Scores Oswestry Low Back Score: 16 - Goals Goal 1:: DECREASE C/O LOW BACK PAIN Goal Time Frame: 4-6 Weeks Goal 2:: IMPROVE PERSONAL CARE, LIFTING, WALKING, SITTING, STANDING, SLEEP, SOCIAL LIFE, TREAVEL AND HOMEMAKING FUNCTION Goal Time Frame: 4-6 Weeks Goal 3:: INSTRUCT IN PROPHYLAXIS Goal Time Frame: 4-6 Weeks - Anticipated Interventions Patient/Client Instruction: Educate patient on: Condition, Plan of Care, Risk Factors For the Purpose of:: To improve self management Therapeutic Exercise to Include: Strength training, Body mechanics, Postural training, Flexibilty training, Gait and locomotor training, Neuromotor development, In an aquatic setting, Dynamic Lumbar Stabilization For the Purpose of:: To decrease pain, To increase ROM, To improve muscle performance and motor function, To increase tolerance to activity/condition/position, To improve ability of physical actions for home/community/work/leisure Thank you for the opportunity to evaluate your patient. For Medicare and Medicare HMO plans, please review the plan of care and approve it. It will need to be FAXED BACK to us at [phone] for Medicare purposes. For Medicare only, by signing this I certify the plan of care. Please let me know if there are questions or concerns regarding this plan of care. Physician Signature: Date:
--- NOTE | 2021-08-12 09:41 | HP.PTDCSUM_ITS ---
It has been my pleasure to treat ANUSHA ALDRICH referred by Dr. Nicole Pinedo DC, with the diagnosis of LUMBOSACRAL DDD, LUMBAR AND PELVIC SEGMENTAL ASOMATIC for a total of 10 visit(s). Discharge Date: 08/12/21 Please see the following information for a summary of their discharge status. Subjective: PATIENT REPORTS SHE IS GETTING STRONGER IN HER CORE. STATES SHE IF SHE HAS TO LIFT MUCH SHE GETS INCREASED PAIN BUT SHE CAN LIFT NOW. COOKING INCREASES HER PAIN AND DOING DISHES INCREASES HER PAIN. IT FEELS BETTER WHEN SITTING WITH LOW BACK SUPPORT. STATES SHE HAS BEEN GOING HIKING SOME. STATES SHE LIKES THE POOL THERAPY BUT WHEN SHE LEAVES SHE IS WORE OUT. FOLLOW UP PENDING WITH DR. DOOLEY AUG 22 2021. THE THING THAT HAS HELPED ME THE MOST IS THE WATER EXERCISE SO I PLAN TO CONTINUE ON MY OWN. PATIENT REPORTS SHE HAS LEARNED WAYS THROUGH PT TO CONTROL HER PAIN MORE BUT IT IS AWKWARD SOMETIMES. LB Pain Intensity (Out of 10): 1 L knee Pain Intensity (Out of 10): 0 % Improvement: 70 Objective/Function: PATIENT WAS SEEN TODAY FOR RE-ASSESSMENT OF PROGRESS TOWARD THE SET PT GOALS AND THE NEED FOR FURTHER PHYSICAL THERAPY VS READINESS FOR DISCHARGE. SHE IS INDEP WITH A POOL EX PROGRAM. PATIENT HAS MADE PROGRESS WITH PT INTERMS OF STRENGTH BUT SHE IS STILL UNABLE TO DO HER NORMAL ADLS WITHOUT PAIN LIMITING HER AND SHE HAS NOT BEEN ABLE TO RETURN TO HER PLOF (PRIOR LEVEL OF FUNCTION). HER PAIN DOES SEEM TO BE A LITTLE BETTER AND ROM TESTING DID NOT PROVOKE C/O INCREASED PAIN TODAY. UPON EXAM TODAY: Motor deficit: DEEDEE LE'S GROSSLY 5/5 EXCEPT LEFT HIP 4/5. Sensory deficit: DEEDEE LE LIGHT TOUCH SENSATION GROSSLY INTACT AND SYMMETRICAL. ROM deficit: DEEDEE LE'S WFL BUT TIGHT DEEDEE HIP FLEXORS. Dural Signs: NEGATIVE DEEDEE LE'S. Lumbar mvmt loss: flex - NIL. ext - MOD TO MARISELA. R SG - MIN. L SG - MOD. PATIENT DENIES INCREASED LBP WITH LUMBAR ROM TESTING TODAY. Core strength: POOR. Goal 1:: DECREASE C/O LOW BACK PAIN Goal Progress: Goal Met Goal 2:: IMPROVE PERSONAL CARE, LIFTING, WALKING, SITTING, STANDING, SLEEP, SOCIAL LIFE, TREAVEL AND HOMEMAKING FUNCTION Goal Progress: Goal Met Goal 3:: INSTRUCT IN PROPHYLAXIS Goal Progress: Goal Met Plan: D/C TO INDEP POOL PROGRAM AND FOLLOW UP WITH DR. DOOLEY. PATIENT IS AGREEABLE. PATIENT HAS A [employer]BER[employer]IP. If there are questions or concerns regarding this patient's physical therapy, please feel free to call me at [phone]. Thank you for the referral of this patient. Sincerely, Olivia Villanueva, PT, Cert MDT Balance/Gait/Functional tests - Balance/Special Test Scores Oswestry Low Back Score: 13
== END 2021-08-12 19:00 | disposition home or self-care (01) ==
LOC: PT 09:00
PROVIDERS: PCP Family Medicine Geriatric Medicine; Referring Provider Chiropractor; Visit Provider Chiropractor
DX: M51.37 Other intervertebral disc degeneration, lumbosacral region (principal); M99.05 Segmental and somatic dysfunction of pelvic region; M99.03 Segmental and somatic dysfunction of lumbar region
CPT/HCPCS: 97112; 97113; 97162; 97164

== ENCOUNTER → 2021-08-18 08:27 | Outpatient (CLI) | payer MEDICARE, SELFPAY ==
[2021-08-18 10:08] LABS: Absolute Lymphocyte Count 1.84 X10^3/uL (0.83-4.51); Absolute Neutrophil Count 4.5 X10^3/uL (2.0-7.7); Basophil# 0.08 X10^3/uL; Basophil% 1.1 % (0-1); Eosinophil# 0.17 X10^3/uL; Eosinophils% 2.4 % (0-5); Hematocrit 44.8 % (37-47); Hemoglobin 14.6 g/dL (12.0-15.0); Lymphocyte # 1.84 X10^3/ul (0.83-4.51); Mean Corp Hgb Conc 32.6 g/dL (32-36); Mean Corpuscular Hgb 32.3 pg (27.0-32.0); Mean Corpuscular Volume 99.1 fL (81-99); Monocyte# 0.52 X10^3/uL; Monocyte% 7.3 % (0-10); NRBC Flagged by Analyzer 0 % (0-5); Neutrophil # 4.45 X10^3/uL (2.7-7.7); Neutrophil % 62.9 % (47-70); Platelet Count 270 K/mm3 (150-450); RBC Distribution Width CV 13.4 % (11.6-14.6); RBC Distribution Width SD 48.6 fl (35.1-43.9); Red Blood Count 4.52 M/mm3 (4.2-5.4); White Blood Count 7.1 K/mm3 (4.4-11.0)
[2021-08-18 10:25] LABS: ALB/GLOB Ratio 0.9 RATIO (0.9-2.4); AST(SGOT) 19 U/L (15-37); Alanine Aminotransfer ALT/SGPT 35 U/L (13-56); Albumin, Serum 3.6 g/dL (3.2-5.0); Alkaline Phosphatase 83 U/L (45-117); Anion Gap 8 (5-15); BUN 21 mg/dL (7-18); Calcium,Total 9.3 mg/dL (8.5-10.1); Chloride 104 mmol/L (98-107); EST Glomerular Filtration Rate 86 mL/min (>60); Est Glom Filt Rate - Afr Amer 104 mL/min (>60); Glucose 117 mg/dL (74-106); Potassium 3.7 mmol/L (3.5-5.1); Protein, Total 7.6 g/dL (6.4-8.2); Sodium Level 140 mmol/L (136-145)
== END ==
PROVIDERS: PCP Family Medicine Geriatric Medicine; Referring Provider Internal Medicine Rheumatology; Visit Provider Internal Medicine Rheumatology
DX: M06.4 Inflammatory polyarthropathy (principal); Z79.899 Other long term (current) drug therapy; M19.041 Primary osteoarthritis, right hand; M17.0 Bilateral primary osteoarthritis of knee; K21.9 Gastro-esophageal reflux disease without esophagitis; E03.9 Hypothyroidism, unspecified; I10 Essential (primary) hypertension; F32.9 Major depressive disorder, single episode, unspecified; M47.897 Other spondylosis, lumbosacral region
CPT/HCPCS: 36415; 80053; 85025

== ENCOUNTER → 2021-08-22 14:31 | Outpatient (CLI) | payer MEDICARE, SELFPAY ==
[2021-08-22 17:35] LABS: Absolute Neutrophil Count 5.7 X10^3/uL (2.0-7.7); Basophil# 0.09 X10^3/uL; Eosinophil# 0.15 X10^3/uL; Eosinophils% 1.7 % (0-5); Hematocrit 44.6 % (37-47); Hemoglobin 14.6 g/dL (12.0-15.0); Lymphocyte % 25.4 % (19-41); Mean Corp Hgb Conc 32.7 g/dL (32-36); Mean Corpuscular Hgb 32.9 pg (27.0-32.0); Mean Corpuscular Volume 100.5 fL (81-99); Mean Platelet Vol. 11.5 fl (6.2-12.0); Monocyte# 0.52 X10^3/uL; NRBC Flagged by Analyzer 0 % (0-5); Neutrophil # 5.67 X10^3/uL (2.7-7.7); Neutrophil % 65.7 % (47-70); Platelet Count 294 K/mm3 (150-450); RBC Distribution Width CV 13.3 % (11.6-14.6); RBC Distribution Width SD 49.1 fl (35.1-43.9); Red Blood Count 4.44 M/mm3 (4.2-5.4); White Blood Count 8.7 K/mm3 (4.4-11.0)
[2021-08-22 17:56] LABS: Vitamin D,25 Hydroxy 113.8 ng/mL
[2021-08-22 18:09] LABS: ALB/GLOB Ratio 1.1 RATIO (0.9-2.4); AST(SGOT) 25 U/L (15-37); Alanine Aminotransfer ALT/SGPT 38 U/L (13-56); Alkaline Phosphatase 89 U/L (45-117); Anion Gap 9 (5-15); BUN 19 mg/dL (7-18); BUN/Creat Ratio 24.2 RATIO (10-20); Calcium,Total 9.3 mg/dL (8.5-10.1); Chloride 104 mmol/L (98-107); Creatinine, Serum 0.78 mg/dL (0.55-1.02); EST Glomerular Filtration Rate 76 mL/min (>60); Est Glom Filt Rate - Afr Amer 92 mL/min (>60); Globulin 3.7 g/dL (2.2-4.2); Glucose 140 mg/dL (74-106); Potassium 3.7 mmol/L (3.5-5.1); Protein, Total 7.7 g/dL (6.4-8.2); Sodium Level 140 mmol/L (136-145); Thyroid Stim Hormone (TSH) 1.64 uIU/mL (0.358-3.74)
[2021-08-23 11:19] LABS: Hemoglobin A1c 5.7 % (3.8-5.6)
== END ==
PROVIDERS: PCP Family Medicine Geriatric Medicine; Visit Provider Family Medicine Geriatric Medicine
DX: E55.9 Vitamin D deficiency, unspecified (principal); I10 Essential (primary) hypertension; R73.9 Hyperglycemia, unspecified
CPT/HCPCS: 36415; 80053; 82306; 83036; 84443; 85025

== ENCOUNTER → 2021-09-23 07:58 | Outpatient (CLI) | payer MEDICARE, SELFPAY ==
--- NOTE | 2021-09-23 08:24 | MRI_ITS ---
History: LOW BACK PAIN Technique: T1 and T2 MR imaging of the lumbar spine performed without contrast enhancement in axial and sagittal planes. Findings: Prominent multilevel disc space narrowing and bony hypertrophy noted most notable at the L2-3 level. Modic type II endplate changes also noted throughout the lumbar spine. No bone edema. Mild retrolisthesis of L2 on L3 and mild anterior listhesis of L5 on S1. Conus medullaris and cauda equina are normal. Paraspinal soft tissues are normal. L1-2: Circumferential disc bulging causing mild impression on the thecal sac mild narrowing of the right neural foramen related to facet arthropathy and the disc bulging. L2-3: Mild impression on the thecal sac related to the retrolisthesis. No disc herniation. Moderate narrowing of the neural foramina related to bony hypertrophy. L3-4: No disc herniation. Moderate facet arthropathy. Intact spinal canal and neural foramina. L4-5: Mild to moderate narrowing of the thecal sac related to mild disc bulging, posterior ligamentous redundancy and facet arthropathy. Moderate narrowing of the neural foramina. L5-S1: Anterior listhesis, mild disc bulging and facet arthropathy results in moderate right and mild left neuroforaminal narrowing. No spinal stenosis. IMPRESSION: Prominent multilevel disc degeneration and facet arthropathy. Mild to moderate L4-5 compression of the thecal sac related to mild disc bulging, posterior ligamentous redundancy and facet arthropathy. Moderate narrowing of the L2-3, L4-5 and right L5-S1 neural foramina related to the disc changes and facet arthropathy. at 1001 Reported and signed by: Merritt Peralta MD Electronically Signed: Merritt Peralta MD at 10:00 EDT Tel , Service support , MRI/Spine Lumbar (Routine)
== END ==
PROVIDERS: PCP Family Medicine Geriatric Medicine; Referring Provider Family Medicine Geriatric Medicine; Visit Provider Family Medicine Geriatric Medicine
DX: M54.50 Low back pain, unspecified (principal)
CPT/HCPCS: 72148

== ENCOUNTER → 2021-10-19 09:16 | Outpatient (CLI) | payer MEDICARE, SELFPAY ==
[2021-10-19 10:13] LABS: Absolute Neutrophil Count 3.3 X10^3/uL (2.0-7.7); Basophil# 0.09 X10^3/uL; Basophil% 1.5 % (0-1); Eosinophil# 0.18 X10^3/uL; Eosinophils% 3.1 % (0-5); Hematocrit 43.8 % (37-47); Hemoglobin 14.5 g/dL (12.0-15.0); Lymphocyte % 27.2 % (19-41); Mean Corp Hgb Conc 33.1 g/dL (32-36); Mean Corpuscular Hgb 32.4 pg (27.0-32.0); Mean Corpuscular Volume 97.8 fL (81-99); Mean Platelet Vol. 11.2 fl (6.2-12.0); Monocyte# 0.66 X10^3/uL; Monocyte% 11.2 % (0-10); NRBC Flagged by Analyzer 0 % (0-5); Neutrophil # 3.32 X10^3/uL (2.7-7.7); Neutrophil % 56.5 % (47-70); Platelet Count 269 K/mm3 (150-450); RBC Distribution Width CV 13.6 % (11.6-14.6); RBC Distribution Width SD 48.6 fl (35.1-43.9); Red Blood Count 4.48 M/mm3 (4.2-5.4); White Blood Count 5.9 K/mm3 (4.4-11.0)
[2021-10-19 10:55] LABS: ALB/GLOB Ratio 0.9 RATIO (0.9-2.4); AST(SGOT) 21 U/L (15-37); Alanine Aminotransfer ALT/SGPT 31 U/L (13-56); Albumin, Serum 3.7 g/dL (3.2-5.0); Alkaline Phosphatase 87 U/L (45-117); Anion Gap 10 (5-15); BUN 25 mg/dL (7-18); BUN/Creat Ratio 34.8 RATIO (10-20); Calcium,Total 9.5 mg/dL (8.5-10.1); Chloride 104 mmol/L (98-107); Creatinine, Serum 0.72 mg/dL (0.55-1.02); EST Glomerular Filtration Rate 84 mL/min (>60); Est Glom Filt Rate - Afr Amer 101 mL/min (>60); Globulin 3.9 g/dL (2.2-4.2); Glucose 99 mg/dL (74-106); Potassium 3.7 mmol/L (3.5-5.1); Protein, Total 7.6 g/dL (6.4-8.2); Sodium Level 140 mmol/L (136-145)
== END ==
PROVIDERS: PCP Family Medicine Geriatric Medicine; Referring Provider Internal Medicine Rheumatology; Visit Provider Internal Medicine Rheumatology
DX: M06.4 Inflammatory polyarthropathy (principal); Z79.899 Other long term (current) drug therapy; M19.041 Primary osteoarthritis, right hand; M17.0 Bilateral primary osteoarthritis of knee; K21.9 Gastro-esophageal reflux disease without esophagitis; E03.9 Hypothyroidism, unspecified; I10 Essential (primary) hypertension; F32.9 Major depressive disorder, single episode, unspecified; M47.897 Other spondylosis, lumbosacral region
CPT/HCPCS: 36415; 80053; 85025

== ENCOUNTER → 2022-03-13 | Outpatient (CLI) | payer MEDICARE, SELFPAY ==
[2022-03-13 17:15] LABS: Absolute Lymphocyte Count 2.27 X10^3/uL (0.83-4.51); Absolute Neutrophil Count 5.2 X10^3/uL (2.0-7.7); Basophil# 0.09 X10^3/uL; Basophil% 1.1 % (0-1); Eosinophil# 0.23 X10^3/uL; Eosinophils% 2.7 % (0-5); Hematocrit 42.8 % (37-47); Hemoglobin 13.8 g/dL (12.0-15.0); Lymphocyte # 2.27 X10^3/ul (0.83-4.51); Lymphocyte % 26.9 % (19-41); Mean Corp Hgb Conc 32.2 g/dL (32-36); Mean Corpuscular Hgb 31.5 pg (27.0-32.0); Mean Corpuscular Volume 97.7 fL (81-99); Mean Platelet Vol. 11.9 fl (6.2-12.0); Monocyte# 0.67 X10^3/uL; Monocyte% 7.9 % (0-10); NRBC Flagged by Analyzer 0 % (0-5); Neutrophil # 5.15 X10^3/uL (2.7-7.7); Platelet Count 302 K/mm3 (150-450); RBC Distribution Width CV 13.7 % (11.6-14.6); RBC Distribution Width SD 49.3 fl (35.1-43.9); Red Blood Count 4.38 M/mm3 (4.2-5.4); White Blood Count 8.4 K/mm3 (4.4-11.0)
[2022-03-13 17:23] LABS: Vitamin D,25 Hydroxy 69.6 ng/mL
[2022-03-13 17:35] LABS: ALB/GLOB Ratio 1.1 RATIO (0.9-2.4); AST(SGOT) 28 U/L (15-37); Alanine Aminotransfer ALT/SGPT 50 U/L (13-56); Albumin, Serum 4.1 g/dL (3.2-5.0); Alkaline Phosphatase 89 U/L (45-117); Anion Gap 7 (5-15); BUN 18 mg/dL (7-18); BUN/Creat Ratio 24.3 RATIO (10-20); Calcium,Total 9.4 mg/dL (8.5-10.1); Chloride 104 mmol/L (98-107); Creatinine, Serum 0.74 mg/dL (0.55-1.02); EST Glomerular Filtration Rate 81 mL/min (>60); Est Glom Filt Rate - Afr Amer 98 mL/min (>60); Globulin 3.7 g/dL (2.2-4.2); Glucose 144 mg/dL (74-106); Potassium 3.6 mmol/L (3.5-5.1); Protein, Total 7.8 g/dL (6.4-8.2); Sodium Level 136 mmol/L (136-145); Thyroid Stim Hormone (TSH) 2.86 uIU/mL (0.358-3.74)
[2022-03-14 11:20] LABS: Hemoglobin A1c 5.8 % (3.8-5.6)
[2022-03-15 10:30] LABS: Magnesium 2.3 mg/dL (1.6-2.6)
== END | disposition home or self-care (01) ==
LOC: POLAB3 11:38
PROVIDERS: Anesthesiology; PCP Family Medicine Geriatric Medicine; Visit Provider Family Medicine Geriatric Medicine
DX: I10 Essential (primary) hypertension (principal); E55.9 Vitamin D deficiency, unspecified; R73.9 Hyperglycemia, unspecified
CPT/HCPCS: 36415; 80053; 82306; 83036; 83735; 84443; 85025

== ENCOUNTER → 2022-03-14 | Outpatient (CLI) | payer MEDICARE, SELFPAY ==
[2022-03-14 17:41] LABS: Prothrombin Time (Protime)PT. 12.5 SECONDS (11.7-14.9)
== END | disposition home or self-care (01) ==
LOC: POLAB3 13:18
PROVIDERS: PCP Family Medicine Geriatric Medicine; Visit Provider Family Medicine Geriatric Medicine
DX: Z00.00 Encounter for general adult medical examination without abnormal findings (principal)
CPT/HCPCS: 36415; 85610

== ENCOUNTER → 2022-03-15 | Outpatient (CLI) | payer MEDICARE, SELFPAY ==
--- NOTE | 2022-03-15 14:56 | CT_ITS ---
STUDY: CT Lower Extremity W/O Contrast Injection 03/15/2022 4:20 PM REASON FOR EXAM: Female, 76 years old. VARUS DEFORMITY Individualized dose optimization techniques were used for this CT. Radiation: CTDIvol = [26.28] mGy, DLP = [1608.77] mGy-cm TECHNIQUE: VARUS DEFORMITY JOSEFINA protocol COMPARISON: No priors for comparison. FINDINGS: A nayan was placed along the lateral aspect of the patient''s lower extremity. CT scans were obtained over the hip, knee, and ankle, separately. CT/Extremity Lower without Contra IMPRESSION: The images will be utilized by the surgical prosthesis unemployment specialist for measurement and planning purposes.. Electronically Signed: Yandel Valles MD at 16:21 EDT ,
== END | disposition home or self-care (01) ==
PROVIDERS: PCP Family Medicine Geriatric Medicine; Visit Provider Specialist
DX: M21.162 Varus deformity, not elsewhere classified, left knee (principal)
CPT/HCPCS: 73700; 87081

== ENCOUNTER 2022-03-29 09:38 | Observation (INO) | payer MEDICARE, SELFPAY ==
--- NOTE | 2022-03-13 12:10 | HP.PCM_ITS ---
History and Physical History and Physical [facility] Patient Name: Elida Worthy : 1945 From: EMILIANO BYRNES PA-C DATE OF SURGERY: 03/29/2022 SCHEDULED PROCEDURE: left total knee arthroplasty HISTORY OF PRESENT ILLNESS: Preoperative history and physical exam was performed on March 13, 2022. This is a 76-year-old female who has had ongoing pain for the past 1-2 years for the left knee. She does have previous history of a medial unicompartmental knee replacement on the right knee. That was performed by Dr. Moody Siegel. Patient states her pain for the left knee has been constant, sharp. Pain is increased with going up and down stairs and walking. She does get start up pain. Pain is located over the medial joint line and anterior knee. Pain is increased with activities of daily living including leisure activity such as walking as well as getting dressed. She has stumbled secondary to the knee pain. She has tried conservative measures including rest, elevation with minimal relief. She has tried water/aquatic therapy for the back which helps her legs, home exercises with minimal relief. She has tried oral medications including Tylenol, gabapentin, and Advil. Patient denies previous surgery on the left knee. She has been using orthotics for over 6 years. She occasionally uses walking sticks. After failing conservative measures and discussing treatment options with Dr. Davi Ponce, the patient does wish to proceed with a left total knee arthroplasty. She has medical history pertinent for hypertension, thyroid di sease, gastroesophageal reflux disease, and rheumatoid arthritis. She does take methotrexate, Tylenol, and gabapentin. She is also currently utilizing topical estrogen. She is aware of the risk of DVT and wishes to stop this 2 weeks before in 2 weeks following surgery. She denies any recent fevers, chills, recent infections. No chest pain or shortness of breath. We are obtaining surgical clearance from the primary care physician Dr. Pierre. REVIEW OF SYSTEMS: Review Of Systems: Constitutional: Reports difficulty sleeping, but denies anorexia, change in appetite, fever, weight change. Cardiovasular: Reports heart murmur, but denies chest pain, irregular heartbeat and peripheral vascular disease. Respiratory: Reports asthma and wheezing, but denies cough, pneumonia, sleep apnea, shortness of breath and tuberculosis. Gastrointestinal: Reports heartburn, but denies constipation, diarrhea, nausea, rectal itching, bloody stools and vomiting. Genitourinary: Denies incontinence. Musculoskeletal: Reports leg swelling, pain, trouble walking and weakness. Skin: Reports history of shingles, but denies Raynaud's and tattoo. Neurological: Denies ambulatory dysfunction, dizziness, numbness/tingling and tremor. Psychiatric: Denies anxiety, depression, insomnia, mental illness and stress. Hematologic/Lymphatic: Denies anemia, bleeding/bruising tendency and past transfusion. Reviewed and updated. PAST MEDICAL HISTORY: Advance Care Plan: Other Directive, POA Effective Date: 03/16/2015 Other Directive, LIVING WILL Effective Date: 03/16/2015 Past Medical History: Medical Problems: Thyroid Disease, Hypercholesterolemia, High Blood Pressure, Allergies, Acid Reflux, Rheumatoid Arthritis Accidents: None Surgical Hx: Hysterectomy, Thyroidectomy LT Foot - (1999) Right Knee Unicompartmental Replacement - (04/09/2014) [facility] RT Shoulder Arthroscopy - (04/29/2015) [email or web address] Steroid Injection Bilateral Midtarsal Joint - (09/20/2017) [email or web address] RT Foot - (2000) Anesthesia Complications: Nausea, Vomiting Assistive Devices: Glasses, Hearing Aid Reviewed and updated. SOCIAL HISTORY: Social History: Marital: .Occupation: Teacher.Work Status: Retired.Hand Dominance: Right- handed. Personal Habits: Tobacco Use: Patient has never smoked.Cigarette Use: Never.Smokeless Tobacco: Never Used Smokeless Tobacco.E-Cigarette Use: Never used.Alcohol: Occasionally.Drug Use: Denies Use.Enjoy Exercising: Daily. Reviewed and updated. VITALS: Ht: 61 Wt: 172lb Wt k.019 BMI: 32.5 BP: 132/84 Pulse: 86 Resp: 14 T: 97.5 T: 36.4C Pain Level: 3 O2SatR: 95 ALLERGIES: Pollen Amoxicillin Lamisil [place] Environmental Adhesives Amoxicillin Lamictal MEDICATIONS: Levothyroxine Sodium 150 mcg Take 1 Tablet orally once per Day for 90 Days, Levothyroxine Sodium 175 mcg Take 1 Tablet orally once per day for 90 days, Hydrochlorothiazide 25 mg 1 tab PO daily, Simvastatin 20 mg 1 tab PO daily, Omeprazole 20 mg 1 cap PO daily, Sertraline HCL 25 mg 1 by mouth every day, Premarin 0.625 mg, Folic Acid 1 mg 1 by mouth every day, Methotrexate Sodium 2.5 mg 6po weekly, Soolantra 1 %, Gabapentin 100 mg 1 by mouth three times a day, Tylenol Extra Strength 500 mg 2 by mouth every 8 hours, Sulfacetamide Sodium (Acne) 10 % apply to entire face every am after washing, Fexofenadine HCL , Mucinex 600 mg, Montelukast Sodium , Vitamin D , Vitamin B 12 PRE-OP EXAM: General appearance:NORMAL Other: Eyes: Conjunctivae and lids: NORMAL Pupils: ERR Ears, Nose, Mouth, and Throat: NORMAL Other: Inspection of lips, teeth and gums: NORMAL Other: Neck: Examination of neck: no masses noted. Respiratory: Assessment of respiratory effort: NORMAL Other: Auscultation of lungs: clear to auscultation no wheezes, rhonchi or rales. Cardiovascular: Auscultation of heart: regular rate and rhythm, no murmurs, gallops or rubs. PHYSICAL EXAMINATION: Patient does walk with an antalgic gait. Left knee is cool to touch without erythema or signs of infection. She has tenderness to palpation along the medial joint line. She has varus alignment which is correctable. She has a 15 flexion contracture. Flexion to 120. Stable to anterior/posterior drawer. Sensation intact to light touch. IMAGING STUDIES: X-rays of the left knee reveal varus alignment with medial joint space narrowing, subchondral sclerosis, osteophyte formation consistent with severe stage IV osteoarthritis. IMPRESSION: 1. Severe left knee osteoarthritis 2. Hypertension 3. Thyroid disease 4. Hypercholesterolemia 5. Gastroesophageal reflux disease 6. Rheumatoid arthritis 7. Estrogen therapy: Topical - patient will stopped 2 weeks prior to surgery and 2 weeks following surgery PLAN: Dr. Davi Ponce did discuss and review with the patient all treatment options including surgical versus nonsurgical options. Patient does wish to proceed with the above-stated procedure. Potential risks, benefits, and complications of the procedure were discussed in detail including but not limited to , infection, nerve and blood vessel damage, persistent pain, numbness, tingling, paresthesias, blood clot, pulmonary embolism, and requirement for possible further surgery. The patient expressed full understanding and has no further questions for the doctor. Patient does agree to proceed with the above-stated procedure and has signed the surgery consent form. We discussed the current risks associated with COVID 19. This does include the risk of exposure while in the hospital. Patient was reassured local hospitals have low infection rates and are taking all necessary precautions to avoid exposure to patients. In addition, we discussed strategies that can be used to help limit exposure including those that limit the patient's time in the hospital. Also using strategies to limit the patient's need for continued inpatient services after being discharged from the hospital. Patient was notified that we will need to comply with any screening or testing the hospital wishes to perform or that surgery may be delayed for any positive results. This dictation was created using voice recognition software. Phonetic and/or grammatical errors may exist. ___ I have re-examined the patient. There are no clinical changes since date of exam. ___ See progress notes for changes. ___ Dictated on admission Date: Time: Signature:
[2022-03-29] VITALS (10 sets, daily range): BP systolic 126–152; BP diastolic 57–92; PULSE 63–83; RESP 16–20; TEMP 36.3–36.6; O2SAT 95–100; BMI 32.9
[2022-03-29] MEDS: Acetaminophen 500 MG Tablet 1000 MG PO ×3 (08:48→21:10)
[2022-03-29] MEDS: Celecoxib 200 MG Capsule 400 MG PO (08:49)
[2022-03-29] MEDS: Gabapentin 600 MG Tablet PO (08:49)
[2022-03-29] MEDS: Lactated Ringers 1,000 ML 999 ML IV ×2 (08:49→11:00)
[2022-03-29 09:06] LABS: Bedside Glucose 99 mg/dL (74-106)
[2022-03-29] MEDS: Cefazolin 2 GM in 0.9% Normal Saline 100 ML IV (10:20)
[2022-03-29] MEDS: dexAMETHasone 10 MG/ML Vial IV (10:30)
[2022-03-29] MEDS: TXA 1000mg in NS100 100ml (IVPB at Incision) 660 MG IV (10:30)
[2022-03-29] MEDS: TXA 1000mg in NS100 100ml (IVPB at Closure) 660 MG IV (11:21)
--- NOTE | 2022-03-29 11:23 | PCM.OPRPT ---
Report of Operation Date of Procedure: 03/29/22 Pre-Operative Diagnosis: Left knee primary osteoarthritis Post-Operative Diagnosis: Left knee primary osteoarthritis Surgery/Procedure Performed:: Left knee minimally invasive robotic assisted total knee replacement Description of Surgical Findings:: Stable knee with good patella tracking Surgeon: Davi Ponce director engineering: Hadley Frost Type of Anesthesia: Spinal Special Medications: 2 g Ancef, 1 g TXA at incision, 1 g TXA closure, 10 mg Decadron, joint cocktail (5 mg Duramorph, 30 mL of 0.5% Ropivicaine, 1000 units of epinephrine, 30 mg of Toradol) Specimen's removed: Bony cuts Estimated Blood Loss (mL): 50 Fluids Replaced: 1200 mL crystalloid Description of Procedure: Implants used: 1. Triny size 2 triathlon cruciate retaining distal femoral press-fit component 2. [place] size 2 press-fit tritanium tibial baseplate 3. [place] X3 9 mm CS polyethylene 4. Triny X3 29 mm asymmetric patella Brief history operative indications: 76-year-old F with history of left knee osteoarthritis with radiographic findings with loss of joint space, osteophyte formation and subchondral sclerosis. Failed conservative measures as mentioned in the H&P. Discussion of total knee arthroplasty as well as risk and benefits were discussed the patient including but not limited to blood loss, DVTs, PEs, neurovascular damage, general risk of anesthesia including loss of life, and stiffness or instability were discussed with patient. Patient demonstrated understanding and was able to sign informed consent. Procedure: On the date of procedure patient's left lower extremity was marked in the preoperative area. The patient was then taken back to the operating room where the patient was placed on the table in the supine position. All bony prominences were identified a well-padded. Anesthesia assumed control of the C-spine and airway and remained controlled throughout the remainder of the procedure. A tourniquet was placed on the left upper thigh and the leg was prepped in a sterile fashion. The surgeon then scrubbed at this time .Upon reentering the room left lower extremity was draped in a standard orthopedic fashion. A timeout was then called and everyone agreed upon the side, the site, the procedure to be performed, patient's identity and antibiotics given. Esmarch bandage was used to exsanguinate the extremity and the tourniquet was placed up to 250 mmHg with the knee in flexion. A midline skin incision was made and sharp dissection was taken down through skin subcutaneous tissue and fat. The standard medial parapatellar incision was made and the patella was subluxed laterally. An Appropriate deep MCL release was done and the fat pad was resected. Our attention was then directed to the patella. The patella was everted and a flat resection was made. The knee was then flexed up in 2 femoral pins were placed inside the incision and 2 tibial pins were placed outside the incision in the medial tibia bicortically. Once this was completed the 2 checkpoints in the femur and tibia were placed. Knee was then flexed up and the bony landmarks were registered. Once this was completed knee was taken through range of motion and manually stressed allowing us to a plan for an appropriate tibial cut. The robotic arm was brought into the field sterilely and checkpoint and saw were registered. Based on the patient's deformity the tibial cut was made in 1 degree varus. At this time the tensioner was then placed in the joint and ligament tension was checked at 90 degrees and full extension. Based on the patient's ligamentous tension appropriate adjustments were made to the operative plan and ligament releases were done. Once we were happy with our operative plan with balanced flexion and extension gaps our attention was directed to the femur. The robot was brought into the field sterilely and registered. Posterior condylar cuts, anterior chamfer cuts and anterior cuts were appropriately made for a size 2 femur. When these were completed the saws were switched out in the distal femoral and posterior chamfer cuts were made. Protecting the soft tissue throughout this time. A size 2 tibial base plate was selected. the knee was flexed to 90 degrees and the soft tissues and posterior osteophytes were removed from the joint. 40 cc of the periarticular injection was injected into the posterior medial corner of the joint. The appropriate trials were then placed on the femur and tibia. A trial polyethylene was trialed to ensure proper balancing and stability of the knee. The appropriate tibial internal rotation was then marked with a bovie. Our attention was then directed to the patella. The lug holes were drilled and the patella trial was placed. Patellar tracking was checked and deemed appropriate. Once we were happy lug holes were drilled for the femur and trial components were removed. the tibia was subluxed and pinned into place and the keel was punched and drilled appropriately. Final components were verified and opened, and cement was mixed in a vacuum. Moovit Simplex cement was used. The wound was copiously irrigated with normal saline. When the cement was ready the components were impacted into place starting with the tibia, femur and finally cementing the patella. The trial poly component was placed and the knee was placed in full extension. All excess cement was removed in the process. Once the cement had cured the tracking, alignment and balance were verified and a size 9 mm CS polyethylene component was placed. Once the final components were placed a 3-minute dilute Betadine lavage was performed followed by an Irrisept lavage was performed and the wound was copiously irrigated with normal saline solution and the periarticular injection was given. The wound was closed in a layer hawk fashion using #1 vicryl interrupted sutures for the arthrotomy, 2-0 interrupted Vicryl suture for the subcuticular layer and titus for final skin closure. A sterile compressive dressing was then placed. The patient was then awakened from anesthesia, transferred to the [place] and transferred to the PACU for recovery. Post op plan DVT ppx: ASA 81mg BID, thigh high compression stockings Follow up: in office in 2 weeks for wound check PT: to start POD #0 at hospital, outpatient PT should be arranged. My physician press assistant was a vital part of this case. He was important in appropriate retraction during the case, and protection of soft tissues during bony cuts. His intimate knowledge of the case and my steps aided in safe and expedient completion of the procedure as well as appropriate position of the leg during the case. He was also vital in assisting with closure under my direct supervision. Due to the complexity of this case robotic arm was used to assist in the surgery to improve accuracy and clinical outcomes. Complications No intraoperative complications Admit VTE Documentation VTE Present on Admission: No VTE Mechan Device Prophylaxis: SCD's and Thigh High BRENDA Hose VTE Pharm Prophylaxis ordered?: Yes
--- NOTE | 2022-03-29 12:33 | RAD_ITS ---
STUDY: X-RAY - LEFT KNEE REASON FOR EXAM: Female, 76 years old. Post op -- AP and Lateral xray of operative knee in PACU TECHNIQUE: 2 view(s) of the knee. COMPARISON: Comparison is made with prior study 04/09/2014. FINDINGS: Normal visualized distal femur. Normal visualized proximal tibia and fibula. Normal proximal tibiofibular articulation. The patient is status post total knee replacement. There is good alignment. Postoperative soft tissue changes. RAD/Knee 1 or 2 Views IMPRESSION: Status post total knee replacement. There is good alignment. Postoperative soft tissue changes. Electronically Signed: Yuniel Lewis MD at 12:47 EDT ,
[2022-03-29] MEDS: Famotidine 20 MG Tablet PO (14:25)
[2022-03-29] MEDS: Lactated Ringers 1,000 ML 125 ML IV (14:26)
[2022-03-29] MEDS: Ensure Surgery 237 ML LIQUID PO (14:27)
--- NOTE | 2022-03-29 14:50 | PCM.PN.HOSP ---
Subjective Subjective Patient was seen and examined today at the request of orthopedic surgery who performed a minimally invasive robotic left knee replacement today on the patient due to osteoarthritis. Patient's chronic medical problems include rheumatoid arthritis, rosacea, hypothyroidism, hyperlipidemia, and GERD. At the time of my examination, patient has no complaints of any left knee discomfort, she has no complaints of any shortness of breath, chest discomfort, or chills. Objective Data Objective Data Vital Signs: Vital Signs Temp Pulse Resp BP Pulse Ox 97.8 F 77 18 147/63 H 100 03/29/22 13:41 03/29/22 13:41 03/29/22 13:41 03/29/22 13:41 03/29/22 13:41 Oxygen Flow Rate (L/min) 4 Oxygen Delivery Method Nasal Cannula Weight: 79.1 kg Body Mass Index (BMI) 32.9 Intake & Output: Intake and Output for Last 24 Hours 03/27/22 03/28/22 03/29/22 23:59 23:59 23:59 Intake Total 1432 / 1432 Balance 1432 / 1432 Lab / Micro Data Labs: Laboratory Results - last 24 hr 03/29/22 08:40: POC Glucose 99 Micro: Microbiology 03/15/22 14:58 Swab (Method) Nasal Screen MRSA/MSSA - Final Radiography Diagnostic Testing: Radiology Impression Knee X-Ray 03/29/22 12:33 IMPRESSION: Status post total knee replacement. There is good alignment. Postoperative soft tissue changes. Electronically Signed: Yuniel Lewis MD at 12:47 EDT , Physical Exam Const alert, oriented x3, no apparent distress, average body habitus and healthy appearing General Appearance: cooperative, well kempt and well developed Orientation / Consciousness: awake, oriented to person, oriented to place and oriented to time HEENT normocephalic and moist oral mucous membranes Head and Scalp: normocephalic Eyes PERRL, EOMs intact bilaterally and conjunctivae normal Neck nuchal rigidity, supple, no JVD, thyroid normal and no carotid bruits General: trachea midline Resp normal respiratory effort, no retractions, no use of accessory muscles and clear to auscultation bilaterally Auscultation: Negative for rales, rhonchi or wheezes Cardio regular rate, regular rhythm, S1 normal heart sound, S2 normal heart sound, no murmurs, no rub and no gallops GI normal to inspection, nondistended, normoactive bowel sounds, soft to palpation, non-tender and non-distended Extremity no clubbing, cyanosis or edema Extremity Narrative: Patient has a left knee immobilizer in place at the time my examination Skin no rashes or lesions noted General Skin Exam: no breakdown Neuro oriented x3, CN's II-XII intact bilaterally, no focal motor deficits and no sensory deficits noted Sensorium / Orientation: awake and alert Speech: speech normal Psych affect normal Assessment & Plan Assessment/Plan (1) Arthritis: PLAN: 1. Essential hypertension-patient is currently on hydrochlorothiazide #2 hyperlipidemia-patient will remain on a statin #3 hypothyroidism-patient is on Synthroid #4 gastroesophageal reflux disease-patient is currently on a PPI #5 rheumatoid arthritis-patient's methotrexate will be held during her hospital stay #6 left knee osteoarthritis-status post minimally invasive robotic left knee replacement-PT and OT will see the patient, orthopedic surgery is participating in her care #7 asthma-patient takes Singulair on a daily basis, she will remain on this medication #8 rosacea-patient uses prescription creams, I have elected to keep her off these medications while she is in the hospital. Patient is okay with this. Charges/Coding Visit Charges Inpatient E&M: 23059 Subs Hosp L2
[2022-03-29] MEDS: Cefazolin 1 GM/50 ML BAG IV (17:32)
[2022-03-29] MEDS: Aspirin 81 MG TAB.CHEW PO (17:32)
[2022-03-29] MEDS: Montelukast 10 MG Tablet PO (21:10)
[2022-03-29] MEDS: Atorvastatin Calcium 10 MG Tablet PO (21:10)
[2022-03-29] MEDS: Senna/Docusate Sodium 1 Tablet 2 TABLET PO (21:10)
[2022-03-29] MEDS: Meclizine HCl 25 MG Tablet PO (21:10)
[2022-03-29] MEDS: Gabapentin 100 MG Capsule PO (21:10)
[2022-03-30 02:20] VITALS: BP 146/81; PULSE 87; RESP 18; TEMP 36.4; O2SAT 96
[2022-03-30] MEDS: 0.9% Saline Lock 10 ML Syringe IV (02:27)
[2022-03-30] MEDS: Cefazolin 1 GM/50 ML BAG IV (02:28)
[2022-03-30] MEDS: Acetaminophen 500 MG Tablet 1000 MG PO (05:36)
[2022-03-30] MEDS: Levothyroxine 125 MCG Tablet PO (05:36)
[2022-03-30] MEDS: Gabapentin 100 MG Capsule PO (05:36)
[2022-03-30 06:21] LABS: Hematocrit 40.1 % (37-47); Hemoglobin 13.2 g/dL (12.0-15.0); Mean Corp Hgb Conc 32.9 g/dL (32-36); Mean Corpuscular Hgb 31.9 pg (27.0-32.0); Mean Corpuscular Volume 96.9 fL (81-99); Mean Platelet Vol. 11.7 fl (6.2-12.0); Platelet Count 264 K/mm3 (150-450); RBC Distribution Width CV 13.8 % (11.6-14.6); RBC Distribution Width SD 48.7 fl (35.1-43.9); Red Blood Count 4.14 M/mm3 (4.2-5.4); White Blood Count 16.9 K/mm3 (4.4-11.0)
[2022-03-30 06:50] LABS: Anion Gap 7 (5-15); BUN 13 mg/dL (7-18); BUN/Creat Ratio 16.6 RATIO (10-20); Calcium,Total 9.3 mg/dL (8.5-10.1); Chloride 108 mmol/L (98-107); Creatinine, Serum 0.78 mg/dL (0.55-1.02); EST Glomerular Filtration Rate 76 mL/min (>60); Est Glom Filt Rate - Afr Amer 91 mL/min (>60); Estimated Creatinine Clearance 36.12 ml/min; Glucose 141 mg/dL (74-106); Potassium 3.7 mmol/L (3.5-5.1); Sodium Level 140 mmol/L (136-145)
[2022-03-30 07:37] VITALS: BP 144/75; PULSE 75; RESP 16; TEMP 36.6; O2SAT 97
[2022-03-30] MEDS: Multivitamins,Therapeutic Tablet 1 TABLET PO (08:04)
[2022-03-30] MEDS: Folic Acid 1 MG Tablet PO (08:04)
[2022-03-30] MEDS: Calcium Carb/Vitamin D 1 TABLET Tablet PO (08:04)
[2022-03-30] MEDS: Aspirin 81 MG TAB.CHEW PO (08:04)
[2022-03-30] MEDS: Ensure Surgery 237 ML LIQUID PO ×2 (08:04→11:53)
--- NOTE | 2022-03-30 09:13 | PCM.PN.ORT ---
Subjective Subjective The patient was sitting in bedside chair upon examination. Patient denies any chest pain, shortness of breath, dizziness, lightheadedness, nausea or vomiting, or calf pain. Pain is controlled on medications. No adverse overnight events. Patient states she does have pain when she is trying to flex her knee. Otherwise her pain is been controlled. She has no complaints this morning. Objective Data Objective Data Vital Signs: Vital Signs Temp Pulse Resp BP Pulse Ox 97.8 F 75 16 144/75 H 97 03/30/22 07:37 03/30/22 07:37 03/30/22 07:37 03/30/22 07:37 03/30/22 07:37 Oxygen Flow Rate (L/min) 4 Oxygen Delivery Method Room Air Weight: 79.1 kg Body Mass Index (BMI) 32.9 Intake & Output: Intake and Output for Last 24 Hours 03/28/22 03/29/22 03/30/22 23:59 23:59 23:59 Intake Total 2962 / 2962 1850 / 1850 Balance 2962 / 2962 1850 / 1850 Lab / Micro Data Result Diagrams: 03/30/22 05:10 03/30/22 05:10 Labs: Laboratory Results - last 24 hr 03/30/22 05:10: WBC 16.9 H, RBC 4.14 L, Hgb 13.2, Hct 40.1, MCV 96.9, MCH 31.9, MCHC 32.9, RDW Std Deviation 48.7 H, RDW Coeff of Eric 13.8, Plt Count 264, MPV 11.7 03/30/22 05:10: Sodium 140, Potassium 3.7, Chloride 108 H, Carbon Dioxide 25.0, Anion Gap 7, BUN 13, Creatinine 0.78, Estim Creat Clear Calc 36.12, Est GFR (MDRD) Af Amer 91, Est GFR (MDRD) Non-Af 76, BUN/Creatinine Ratio 16.6, Glucose 141 H, Calcium 9.3 Micro: Microbiology 03/15/22 14:58 Swab (Method) Nasal Screen MRSA/MSSA - Final Radiography Diagnostic Testing: Radiology Impression Knee X-Ray 03/29/22 12:33 IMPRESSION: Status post total knee replacement. There is good alignment. Postoperative soft tissue changes. Electronically Signed: Yuniel Lewis MD at 12:47 EDT , Physical Exam Narrative Vital signs stable and afebrile. SCDs and BRENDA hose are in place bilaterally Patient is able to plantarflex and dorsiflex actively. Sensation is intact to light touch to saphenous, sural, superficial and deep peroneal, and tibial distribution. Mild drainage over the distal pin site dressing, main dressing on proximal pin site dressing are clean dry and intact Negative Homans bilaterally, negative signs and symptoms of DVT. Const alert, oriented x3 and no apparent distress Assessment & Plan Assessment/Plan (1) Status post total left knee replacement: PLAN: 1. S/P left total knee arthroplasty POD #1 2. Continue Pain Medications: Tylenol, meloxicam, oxycodone as needed for pain control. Do not take any other nonsteroidal anti-inflammatories while using meloxicam/Mobic. Patient was also instructed if she has any stomach irritation to stop the meloxicam. We will continue with her Prilosec at home. 3. DVT Prophylaxis: Take 81 mg aspirin twice daily for 4 weeks postoperatively for DVT prophylaxis. Patient denies history of pulmonary embolism or DVT. 4. PT/OT: Weightbearing as tolerated with walker 5. H & H: 13.2/40.1, asymptomatic. Postoperative anemia secondary to acute blood loss from surgery without any intra operative complications. 6. Reactive leukocytosis: Currently 16.9, afebrile. Patient did receive Decadron intraoperatively 7. Continue postoperative medical management per medicine: Case was discussed with hospitalist and they are okay with patient for discharge from a medical standpoint. 8. Encouraged Incentive Spirometry 9. Disposition: Plan will be for discharge home today as long as patient tolerates physical therapy, pain is well controlled, and medically stable. Patient does have outpatient physical therapy established. She would like her prescription sent to [facility]. She will follow-up per postop instructions. Patient will contact her office upon discharge with any concerns or questions. I have reviewed the [place] Automated Rx Reporting System (OARRS) report for this patient for refill pattern and other prescriber involvement as part of the appropriate surveillance for the provision of acute and chronic controlled medications. The report was requested and reviewed on the date of this entry and was considered in the prescribing process. This dictation was created using voice recognition software. Phonetic and/or grammatical errors may exist.
--- NOTE | 2022-03-30 09:17 | PCM.DC ---
Discharge Instructions Diet Discharge Diet: No restrictions Activity Discharge Activity: May Not Drive (while taking narcotic pain medications.) May shower in (days): 1 (Please turn dressing away from water. Okay to get wet as long as dressing is intact to skin.) Ice area for (Minutes): 20 (Every 1-2 hours while awake. Please place barrier between the skin and ice pack.) Weight Bearing Status: Weight bearing as tolerated (With walker) Keep extremity elevated above heart level: Operative Extremity Dressing / Incision Call your doctor if your incision/area has: Continuous Slow Oozing, Sudden Increased Bleeding, Increased Pain/ Swelling, Increased Redness and Foul Smelling Discharge Call your doctor if you observe: Fever of 101 or Higher, Coldness, Increased Pain, Numbness or Tingling, Change in Color, Shortness of breath, Chest pain, Calf discomfort and Uncontrolled pain Remove Dressing in: 4 days (Okay to remove dressing on April 03, 2022) Additional Dressing/Incision Instructions:: Follow [facility] Post-op Instructions. Once postoperative dressing has been removed only use gentle soap and water over the incision. Do not use any ointments, Neosporin, salves, alcohol pads over the incision for 6 weeks postoperatively. Do not submerge underwater for 6 weeks postoperatively. Continue with BRENDA hose/elastic stockings for 2 weeks postoperatively. May remove at nighttime but needs to be placed back on the leg during the day. Do NOT use alcohol with narcotic pain medication. Do NOT make important decisions while taking narcotic medication. If you have problems with taking your medication (rash, itching, nausea, etc.) call the office at once. Follow Up Care Test Results: Test results from this visit will be discussed in further detail at your follow-up appointment, if applicable. Discharge Plan Admission Admit Date/Time: 03/29/22 09:38 Attending Provider: Davi Ponce Primary Care Provider: Aquilino Pierre Chi Consulting Providers: Karlos Hong ; Piedad Alva Discharge Orders/Prescriptions Prescriptions: New aspirin 81 mg tablet,delayed release (DR/EC) 81 mg PO BIDCM 30 Days Qty: 60 RF: 0 meloxicam 7.5 mg Tablet 7.5 mg PO BID Qty: 60 RF: 0 oxycodone 5 mg Tablet 5 - 10 mg PO Q4H PRN PRN (Reason: Pain Score 4-10) 5 Days Qty: 60 RF: 0 sennosides-docusate sodium [Stool Softener-Stimulant Laxat] 8.6-50 mg Tablet 2 tab PO BID Qty: 0 RF: 0 Continued sertraline 25 mg tablet 25 mg PO DAILY RF: 0 montelukast 10 mg tablet 10 mg PO QHS RF: 0 ivermectin [Soolantra] 1 % cream 1 applic topical DAILY RF: 0 sulfacetamide sodium 10 % cream 1 applic topical BID PRN (Reason: FACE) RF: 0 tacrolimus 0.1 % ointment 1 applic topical BID PRN (Reason: FACE) RF: 0 guaifenesin [Mucinex] 600 mg tablet extended release 12hr 600 mg PO BID PRN (Reason: ALLERGIES) RF: 0 fexofenadine 180 mg tablet 180 mg PO DAILY RF: 0 cholecalciferol (vitamin D3) 125 mcg (5,000 unit) capsule 125 mcg PO DAILY RF: 0 simvastatin 20 MG tablet 20 mg PO QHS RF: 0 omeprazole 20 MG capsule 20 mg PO DAILY RF: 0 hydrochlorothiazide 25 MG tablet 25 mg PO DAILY RF: 0 multivitamin with folic acid [Thera] 1 TABLET tablet 1 tab PO DAILY RF: 0 folic acid 0.4 MG tablet 0.8 mg PO DAILY@0800 RF: 0 levothyroxine [Levoxyl] 125 mcg tablet 125 mcg PO DAILY RF: 0 Vitamin B-12 50 mcg Tablet 50 mcg PO DAILY RF: 0 calcium carbonate-vitamin D2 600 mg calcium- 200 unit Tablet 1 tab PO DAILY RF: 0 methotrexate sodium 2.5 mg Tablets,Dose Pack 20 mg PO WE RF: 0 gabapentin 100 mg Tablet 100 mg PO TID RF: 0 flaxseed 1,000 mg Capsule 1,000 mg PO DAILY RF: 0 meclizine 25 mg Capsule 25 mg PO BID RF: 0 magnesium 250 mg Tablet 250 mg PO DAILY RF: 0 acetaminophen [Tylenol 8 Hour] 650 mg tablet extended release 650 mg PO BID Qty: 0 RF: 0 Held Premarin 1 DOSE cream 1 dose vaginal PRN PRN (Reason: DRYNESS) RF: 0 Hold Instructions: Resume on 04/12/22. Patient can resume 2 weeks postoperatively. Referrals / Follow Up: Physical,Therapy [Other] - 04/03/22 10:00 am Aquilino Pierre Chi, MD [Primary Care Provider] - Hadley Frost PA-C [PHYSICIAN SALES INCENTIVE ANALYST] - 04/13/22 3:30 pm Disposition Disposition (needs filled in before D/C Order can be placed): Home, Self Care
--- NOTE | 2022-03-30 10:26 | PCM.PN.HOSP ---
Subjective Subjective Patient states she is doing extremely well. Anxious to go home later today. No significant pain. She indicates she already takes MiraLAX daily for constipation. We did not discuss increasing to possibly twice daily depending on stool output with opiate use for pain postoperatively. She voiced understanding. Objective Data Objective Data Vital Signs: Vital Signs Temp Pulse Resp BP Pulse Ox 97.8 F 75 16 144/75 H 97 03/30/22 07:37 03/30/22 07:37 03/30/22 07:37 03/30/22 07:37 03/30/22 07:37 Oxygen Flow Rate (L/min) 4 Oxygen Delivery Method Room Air Weight: 79.1 kg Body Mass Index (BMI) 32.9 Intake & Output: Intake and Output for Last 24 Hours 03/28/22 03/29/22 03/30/22 23:59 23:59 23:59 Intake Total 2962 / 2962 1850 / 1850 Balance 2962 / 2962 1850 / 1850 Lab / Micro Data Result Diagrams: 03/30/22 05:10 03/30/22 05:10 Labs: Laboratory Results - last 24 hr 03/30/22 05:10: WBC 16.9 H, RBC 4.14 L, Hgb 13.2, Hct 40.1, MCV 96.9, MCH 31.9, MCHC 32.9, RDW Std Deviation 48.7 H, RDW Coeff of Eric 13.8, Plt Count 264, MPV 11.7 03/30/22 05:10: Sodium 140, Potassium 3.7, Chloride 108 H, Carbon Dioxide 25.0, Anion Gap 7, BUN 13, Creatinine 0.78, Estim Creat Clear Calc 36.12, Est GFR (MDRD) Af Amer 91, Est GFR (MDRD) Non-Af 76, BUN/Creatinine Ratio 16.6, Glucose 141 H, Calcium 9.3 Micro: Microbiology 03/15/22 14:58 Swab (Method) Nasal Screen MRSA/MSSA - Final Radiography Diagnostic Testing: Radiology Impression Knee X-Ray 03/29/22 12:33 IMPRESSION: Status post total knee replacement. There is good alignment. Postoperative soft tissue changes. Electronically Signed: Yuniel Lewis MD at 12:47 EDT , Physical Exam Const alert, oriented x3, no apparent distress, healthy appearing and well nourished Constitutional Narrative: Obese elderly white female sitting up in a chair at the bedside eating breakfast and watching television, patient appears comfortable, very pleasant and appropriately interactive Exam Limitations: no limitations Nutritional Appearance: obese HEENT head/scalp atraumatic and moist oral mucous membranes Head and Scalp: normocephalic Resp normal respiratory effort, no retractions, no use of accessory muscles and clear to auscultation bilaterally Auscultation: Negative for crackles, rales, rhonchi or wheezes Cardio regular rate, regular rhythm, S1 normal heart sound, S2 normal heart sound, no murmurs, no rub, no gallops, no clicks and no JVD GI normal to inspection, nondistended, normoactive bowel sounds, soft to palpation, non-tender and non-distended; Negative for hepatosplenomegaly Extremity no clubbing, cyanosis or edema Peripheral Pulses: Yes pulses 2+ throughout Neuro oriented x3, CN's II-XII intact bilaterally, moves all extremities and no focal motor deficits Neuro Narrative: Decreased range of motion and strength left knee/lower extremity secondary to recent replacement but otherwise normal Sensorium / Orientation: awake and alert Speech: speech normal Psych affect normal Psych Narrative: Extremely pleasant and appropriate Assessment & Plan Assessment/Plan (1) Osteoarthritis: (2) Status post total left knee replacement: PLAN: Assessment: Left knee osteoarthritis status post left total knee arthroplasty Reactive leukocytosis Seasonal allergies Hypertension Hypothyroidism GERD Hyperlipidemia RA Plan: -Postop day 1 total knee arthroplasty left lower extremity -Patient is doing extremely well -PT and OT -Weightbearing as tolerated -Aspirin 81 mg p.o. twice daily for 4 weeks postoperatively -Suspect leukocytosis is reactive as there are no signs of infection and she is immediate postoperative -Patient also did receive intraoperative Decadron -Medically stable for discharge home Charges/Coding Visit Charges OBSV E&M: 10600 Subsequent observation care L2
[2022-03-30] MEDS: Meclizine HCl 25 MG Tablet PO (10:59)
[2022-03-30] MEDS: hydroCHLOROthiazide 25 MG Tablet PO (11:00)
[2022-03-30] MEDS: Magnesium Chloride 64 MG Delay Rel.Tablet 128 MG PO (11:00)
[2022-03-30] MEDS: Senna/Docusate Sodium 1 Tablet 2 TABLET PO (11:01)
[2022-03-30] MEDS: Cholecalciferol (Vit D3) 125 MCG CAPSULE (5,000 UNITS) PO (11:01)
[2022-03-30] MEDS: Famotidine 20 MG Tablet PO (11:01)
[2022-03-30] MEDS: Pantoprazole Sodium 20 MG Tablet PO (11:01)
--- NOTE | 2022-03-30 11:10 | CASEMGMT ---
MARGARET HAIRSTON PIECE MEAT TRIMMER CM to room to meet with patient for initial transition planning/care coordination assessment. MARGARET HAIRSTON introduced self and role at [facility].? Pt voices understanding and consents to assessment at this time.? Pt sitting up in chair in room in no distress at this time.? in room visiting. Pt is A/O at this time and answers all questions appropriately.?? Care providers, pharmacy, and demographics verified/updated at this time. PCP: Dr Pierre Specialists: Dr Ponce-ortho, Dr Uriostegui--[facility] @ [facility], Dr Chiu--emergency generator mechanic in [place], Dr Chelle Paz--osteopathic doctor in [place], for allergy treatments, Dr Wilder-nutrition partner Preferred Pharmacy: [facility] Insurance: [employer] [facility] Prescription Benefit:? Yes Living Will/HPOA:? Has both LW and HPOA, who is her , Moody ARIZMENDIOK: , Moody Living Arrangements: Lives w/ in split-level home w/one step to enter but then has 7 steps to go down to lower level where pt will be mostly. 9-10 steps to go to upper level. Pt states she feels comfortable navigating the stairs. Independent w/ADL's prior to surgery. does most home mgmt tasks and able to assist pt as needed. Transportation: Pt and both drive and deny transportation concerns DME: ?Has the following DME:? shower chair, BSC, RTS, walker, W/C, Polar care, walking sticks ?Pt and state no need for further DME at this time.? HHC/SNF: No hx of either. Pt wishes to go to OP therapy @ [facility]. 1st appt is scheduled for 04/04 @ 8 AM. (1st appt was originally scheduled for 04/03, but was unable to take pt to appt that day, so they rescheduled to 04/04) Pt wishes to return home w/OP thrapy and states has no concerns with going home at time of discharge.? Pt and voice no concerns/needs at this time.? PLAN: ?Home w/OP therapy @ [facility] and spousal support. Samir SHERWOOD RN, CM
--- NOTE | 2022-03-30 11:42 | PHA.DC.MC ---
Pharmacy Service has performed discharge medication reconciliation and counseling for this patient. The patient was counseled on the following discharge medications and changes in medications for homegoing were reviewed. 1. MELOXICAM 2. OXYCODONE The Reason for Use, instructions for use, and potential side effects were reviewed for all new medications. The patient's questions regarding all of their medications were answered. The patient was able to verbally demonstrate an understanding of their discharge medications. Home Medications Premarin 1 dose VAGINAL PRN PRN 04/01/14 hydrochlorothiazide 25 mg PO DAILY 04/01/14 multivitamin with folic acid [Thera] 1 tab PO DAILY 04/01/14 omeprazole 20 mg PO DAILY 04/01/14 simvastatin 20 mg PO QHS 04/01/14 folic acid 0.8 mg PO DAILY@0800 04/09/14 cholecalciferol (vitamin D3) 125 mcg (5,000 unit) capsule 125 mcg PO DAILY 05/19/21 fexofenadine 180 mg tablet 180 mg PO DAILY 05/19/21 guaifenesin 600 mg tablet, extended release 12 hr 600 mg PO BID PRN 05/19/21 ivermectin 1 % topical cream 1 applic TOPICAL DAILY 05/19/21 levothyroxine 125 mcg tablet 125 mcg PO DAILY 05/19/21 montelukast 10 mg tablet 10 mg PO QHS 05/19/21 sertraline 25 mg tablet 25 mg PO DAILY 05/19/21 sulfacetamide sodium 10 % topical cream 1 applic TOPICAL BID PRN 05/19/21 tacrolimus 0.1 % topical ointment 1 applic TOPICAL BID PRN 05/19/21 Vitamin B-12 50 mcg PO DAILY 03/15/22 calcium carbonate-vitamin D2 1 tab PO DAILY 03/15/22 flaxseed 1,000 mg PO DAILY 03/15/22 gabapentin 100 mg PO TID 03/15/22 magnesium 250 mg PO DAILY 03/15/22 meclizine 25 mg PO BID 03/15/22 methotrexate sodium 20 mg PO WE 03/15/22 acetaminophen [Tylenol 8 Hour] 650 mg PO BID #0 tab 03/30/22 aspirin 81 mg PO BIDCM 30 Days #60 tab 03/30/22 meloxicam 7.5 mg PO BID #60 tab 03/30/22 oxycodone 5 - 10 mg PO Q4H PRN PRN 5 Days #60 tab 03/30/22 sennosides-docusate sodium [Stool Softener-Stimulant Laxat] 2 tab PO BID #0 tab 03/30/22 The patient's discharge medication list was reviewed for discrepancies and discrepancies were resolved.
[2022-03-30] MEDS: oxyCODONE 5 MG Tablet PO (11:53)
[2022-03-30 13:33] VITALS: BP 116/64; PULSE 75; RESP 18; TEMP 36.8; O2SAT 98
== END 2022-03-30 14:00 | disposition home or self-care (01) ==
LOC: SDC 09:39 → MS3 09:39
PROVIDERS: Admitting Provider Specialist; PCP Family Medicine Geriatric Medicine; Referring Provider Specialist; Visit Provider Specialist
PROC: 0SRD0JZ Replacement of Left Knee Joint with Synthetic Substitute, Open Approach (ICD-10-PCS; CPT 27447; principal; 2022-03-29 10:00)
DX: M17.12 Unilateral primary osteoarthritis, left knee (principal); M06.9 Rheumatoid arthritis, unspecified; E89.0 Postprocedural hypothyroidism; K21.9 Gastro-esophageal reflux disease without esophagitis; E78.5 Hyperlipidemia, unspecified; I10 Essential (primary) hypertension; Z79.899 Other long term (current) drug therapy; Z79.890 Hormone replacement therapy; M99.03 Segmental and somatic dysfunction of lumbar region; M99.05 Segmental and somatic dysfunction of pelvic region; R01.1 Cardiac murmur, unspecified; H91.90 Unspecified hearing loss, unspecified ear; M51.37 Other intervertebral disc degeneration, lumbosacral region; F32.A Depression, unspecified; J45.909 Unspecified asthma, uncomplicated
CPT/HCPCS: 27447; S2900; 01402; 64447; 36415; 73560; 80048; 82962; 85027; 87081; 96365; 96366; 97110; 97116; 97162; 97166; 97530; 97535; 99218; 99251; C1776; J7120; A4216; G0378; G0463; J3475

== ENCOUNTER → 2022-04-25 | Outpatient (CLI) | payer MEDICARE, SELFPAY ==
[2022-04-25 15:19] LABS: AST(SGOT) 15 U/L (15-37); Alanine Aminotransfer ALT/SGPT 29 U/L (13-56); Albumin, Serum 3.8 g/dL (3.2-5.0); Alkaline Phosphatase 127 U/L (45-117); Anion Gap 8 (5-15); BUN 18 mg/dL (7-18); Calcium,Total 9.6 mg/dL (8.5-10.1); Chloride 104 mmol/L (98-107); Creatinine, Serum 0.69 mg/dL (0.55-1.02); EST Glomerular Filtration Rate 87 mL/min (>60); Est Glom Filt Rate - Afr Amer 106 mL/min (>60); Globulin 3.8 g/dL (2.2-4.2); Glucose 131 mg/dL (74-106); Potassium 3.4 mmol/L (3.5-5.1); Protein, Total 7.6 g/dL (6.4-8.2); Sodium Level 138 mmol/L (136-145)
[2022-04-25 17:50] LABS: Absolute Lymphocyte Count 1.67 X10^3/uL (0.83-4.51); Absolute Neutrophil Count 4.8 X10^3/uL (2.0-7.7); Basophil% 1.3 % (0-1); Eosinophil# 0.26 X10^3/uL; Eosinophils% 3.5 % (0-5); Hematocrit 42.4 % (37-47); Hemoglobin 13.6 g/dL (12.0-15.0); Lymphocyte # 1.67 X10^3/ul (0.83-4.51); Lymphocyte % 22.5 % (19-41); Mean Corp Hgb Conc 32.1 g/dL (32-36); Mean Corpuscular Hgb 31.6 pg (27.0-32.0); Mean Corpuscular Volume 98.6 fL (81-99); Mean Platelet Vol. 10.9 fl (6.2-12.0); Monocyte# 0.56 X10^3/uL; Monocyte% 7.5 % (0-10); NRBC Flagged by Analyzer 0 % (0-5); Neutrophil # 4.81 X10^3/uL (2.7-7.7); Neutrophil % 64.8 % (47-70); Platelet Count 314 K/mm3 (150-450); RBC Distribution Width CV 13.7 % (11.6-14.6); RBC Distribution Width SD 49.4 fl (35.1-43.9); White Blood Count 7.4 K/mm3 (4.4-11.0)
== END | disposition home or self-care (01) ==
LOC: MTLAB 11:16
PROVIDERS: PCP Family Medicine Geriatric Medicine; Referring Provider Internal Medicine Rheumatology; Visit Provider Internal Medicine Rheumatology
DX: M06.4 Inflammatory polyarthropathy (principal); M19.041 Primary osteoarthritis, right hand; M19.042 Primary osteoarthritis, left hand; M17.0 Bilateral primary osteoarthritis of knee; K21.9 Gastro-esophageal reflux disease without esophagitis; E03.9 Hypothyroidism, unspecified; I10 Essential (primary) hypertension; F32.9 Major depressive disorder, single episode, unspecified; M47.897 Other spondylosis, lumbosacral region; Z79.899 Other long term (current) drug therapy
CPT/HCPCS: 36415; 80053; 85025

== ENCOUNTER → 2022-05-08 | Outpatient (CLI) | payer MEDICARE, SELFPAY ==
--- NOTE | 2022-05-08 14:31 | VDLE_ITS ---
Reason For Study: Pain RIGHT LEFT CFV is compressible, spontaneous, phasic, GSV is normal. competent and demonstrates normal CFV is compressible, spontaneous, phasic, augmentation. competent, and demonstrates normal Procedure augmentation. This is a venous duplex using B-mode, color FV is compressible, spontaneous, phasic, flow and spectral Doppler. competent and demonstrates normal Exam performed in department. augmentation. A preliminary report was called and/or faxed POP V is compressible, spontaneous, phasic, to Dr. Ponce. competent and demonstrates normal augmentation. T/P Trunk is compressible. PTV is compressible. LT PerV is compressible. VL/Venous Duplex US, Unilateral Interpretation Summary Deep veins of the left lower extremity are patent and compressible segmentally. There is no evidence of left lower extremity deep vein thrombosis. Valvular competence appears intac t within the proximal deep venous system on the left . The left great saphenous vein appears patent a nd compressible segmentally. Ordering Physician: Davi Pnoce Referring Physician: Aquilino Pierre Chi Performed By: Ayesha Figueroa, MAIDACS, RVT
== END | disposition home or self-care (01) ==
LOC: CVS 14:24
PROVIDERS: PCP Family Medicine Geriatric Medicine; Referring Provider Specialist; Visit Provider Specialist
DX: M79.662 Pain in left lower leg (principal)
CPT/HCPCS: 93971

== ENCOUNTER 2022-06-02 15:00 | Outpatient (RCR) | payer MEDICARE, SELFPAY ==
--- NOTE | 2022-04-04 14:32 | HP.PTEVAL_ITS ---
Patient's Visit Information ANUSHA ALDRICH is a 76 year old F referred to Physical Therapy by Mike Frost PA-C with a diagnosis of UNILATERAL PRIMARY OSTEOARTHITIS. Date of Evaluation: 04/04/22 Physical Therapist: Moody Conroy, PT, Cert MDT, OCS - Visit Plan Frequency: 2-3x /Week Duration: 4-6 Weeks Plan: PT INTERVETIONS - Subjective This 76 y/o female presents to physical therapy with left TKA . Patient has had left knee pain for many years. Seen Dr Ponce 2020 had x-rays showed severe DJD. Patient thus underwent s/p left TKA March done by DR Ponce at [facility] . Patient d/c 03/30/22 with fww . Patient plans to RTD March. Patient has had back pain which had prior PT with water ex's . Prior to surgery didn't need rollator. Did ex's for back and Aquatic on own. Patient lives split level home 6steps x2 with rails. Patient has walk in shower with shower chair, grab rails, bedside chair. Patient denies paresthesia/tingling . Patient has copy of ex's from HEP from [facility]. Patient goals to return to prior level without pain and no back flare ups. MEDS: meloxicam, teylonal 500 , gabapentin. Patient goals to improve function with ADLS' and gait. SOCIAL: - Pain Left Knee Pain Intensity (Out of 10): 3 Pain Intensity Range: 10 - Objective POSTURE: mild forward posture. GAIT: reciprocal pattern mild forward posture slight mild decrease stance time. BALANCE: fair+ with rollator. GIRTH PATELLA: 46.0 CM. GIRTH 6 SUPRAPATELLA :58.7 CM. MMT( peak force): quads 11.5,hamstrings 11.4,hip flexion 10.6. AROM: left knee supine flexion 2-100 degrees. STAIRS: one step at a time with rails - Balance/Special Test Scores WOMAC Total Score: 54 WOMAC Percentatge: 43.7500 - Goals Goal 1:: Patient to be I with HEP TKA Goal Time Frame: 4-6 Weeks Goal 2:: Patient to improve Tug score under < 10sec to improve function Goal Time Frame: 4-6 Weeks Goal 3:: Patient to normalize gait with/without cane community distance Goal Time Frame: 4-6 Weeks Goal 4:: Patient to improve AROM supine knee flexion 0-115 or > degrees to improve ability to ascend/descend stairs. Goal Time Frame: 4-6 Weeks Goal 5:: Patient to improve peak force quads/hams by 15 to improve function and gait Goal Time Frame: 4-6 Weeks Goal 6:: Patient to improve LFES score by 10 points to improve QOL. Goal Time Frame: 4-6 Weeks - Rehabilitation Potential Physical Therapy Diagnosis: This patient has s/p TKR with decrease ROM ,strength impairs walking ,stairs and function thus will benefit from skilled PT Rehabilitation Potential: Good - Anticipated Interventions Patient/Client Instruction: Educate patient on: Condition, Plan of Care For the Purpose of:: To decrease pain, To increase ROM, To improve muscle performance and motor function, To increase tolerance to activity/condition/position, To improve ability of physical actions for home/community/work/leisure, To improve gait and locomotor functions, To increase flexibility/ROM, To improve endurance, To improve balance, To improve tolerance to ADL's Therapeutic Exercise to Include: Strength training, Endurance training, Balance training, Postural training, Gait and locomotor training, Passive ROM, Active ROM Comment: quads/hams/hip For the Purpose of:: To decrease pain, To increase ROM, To improve muscle performance and motor function, To improve ability to perform ADL's, To increase tolerance to activity/condition/position, To improve ability of physical actions for home/community/work/leisure, To improve gait and locomotor functions, To increase flexibility/ROM, To improve balance, To improve safety with gait, To improve tolerance to ADL's Cryotherapy (ice pack, ice massage): Yes Vasopneumatic device: Yes For the Purpose of:: To decrease pain, To decrease swelling/inflammation, To improve nutrient delivery to tissue, To increase oxygenation perfusion Thank you for the opportunity to evaluate your patient. For Medicare and Medicare HMO plans, please review the plan of care and approve it. It will need to be FAXED BACK to us at [phone] for Medicare purposes. For Medicare only, by signing this I certify the plan of care. Please let me know if there are questions or concerns regarding this plan of care. Physician Signature: Date:
--- NOTE | 2022-04-07 15:32 | HP.PTEVAL ---
Patient's Visit Information ANUSHA ALDRICH is a 76 year old F referred to Physical Therapy by Mike Frost PA-C with a diagnosis of UNILATERAL PRIMARY OSTEOARTHITIS. Date of Evaluation: 04/04/22 Physical Therapist: Moody Conroy, PT, Cert MDT, OCS - Visit Plan Frequency: 2-3x /Week Duration: 4-6 Weeks Plan: PT INTERVENTIONS GAIT/BALANCE TRAINING,,AAROM/AROM LEFT KNEE ,FLEXABILITY ,STRENGTHNEING QUADS/HAMS/HIP ,NUSTEP ,AND CP - Subjective This 76 y/o female presents to physical therapy with left TKA . Patient has had left knee pain for many years. Seen Dr Ponce 2020 had x-rays showed severe DJD. Patient thus underwent s/p left TKA March done by DR Ponce at [facility] . Patient d/c 03/30/22 with fww . Patient plans to RTD March. Patient has had back pain which had prior PT with water ex's . Prior to surgery didn't need rollator. Did ex's for back and Aquatic on own. Patient lives split level home 6steps x2 with rails. Patient has walk in shower with shower chair, grab rails, bedside chair. Patient denies paresthesia/tingling . Patient has copy of ex's from [facility] from [facility]. Patient goals to return to prior level without pain and no back flare ups. MEDS: meloxicam, teylonal 500 , gabapentin. Patient goals to improve function with ADLS' and gait. SOCIAL: - Pain Left Knee Pain Intensity (Out of 10): 2 Pain Intensity Range: 10 - Objective POSTURE: mild forward posture. GAIT: reciprocal pattern mild forward posture slight mild decrease stance time. BALANCE: fair+ with rollator. GIRTH PATELLA: 46.0 CM. GIRTH 6 SUPRAPATELLA :58.7 CM. MMT( peak force): quads 11.5,hamstrings 11.4,hip flexion 10.6. AROM: left knee supine flexion 2-100 degrees. STAIRS: one step at a time with rails - Balance/Special Test Scores WOMAC Total Score: 54 WOMAC Percentatge: 43.7500 - Goals Goal 1:: Patient to be I with HEP TKA Goal Time Frame: 4-6 Weeks Goal 2:: Patient to improve Tug score under < 10sec to improve function Goal Time Frame: 4-6 Weeks Goal 3:: Patient to normalize gait with/without cane community distance Goal Time Frame: 4-6 Weeks Goal 4:: Patient to improve AROM supine knee flexion 0-115 or > degrees to improve ability to ascend/descend stairs. Goal Time Frame: 4-6 Weeks Goal 5:: Patient to improve peak force quads/hams by 15 to improve function and gait Goal Time Frame: 4-6 Weeks Goal 6:: Patient to improve LFES score by 10 points to improve QOL. Goal Time Frame: 4-6 Weeks - Rehabilitation Potential Physical Therapy Diagnosis: This patient has s/p TKR with decrease ROM ,strength impairs walking ,stairs and function thus will benefit from skilled PT Rehabilitation Potential: Good - Anticipated Interventions Patient/Client Instruction: Educate patient on: Condition, Plan of Care For the Purpose of:: To decrease pain, To increase ROM, To improve muscle performance and motor function, To increase tolerance to activity/condition/position, To improve ability of physical actions for home/community/work/leisure, To improve gait and locomotor functions, To increase flexibility/ROM, To improve endurance, To improve balance, To improve tolerance to ADL's Therapeutic Exercise to Include: Strength training, Endurance training, Balance training, Postural training, Gait and locomotor training, Passive ROM, Active ROM Comment: quads/hams/hip For the Purpose of:: To decrease pain, To increase ROM, To improve muscle performance and motor function, To improve ability to perform ADL's, To increase tolerance to activity/condition/position, To improve ability of physical actions for home/community/work/leisure, To improve gait and locomotor functions, To increase flexibility/ROM, To improve balance, To improve safety with gait, To improve tolerance to ADL's Cryotherapy (ice pack, ice massage): Yes Vasopneumatic device: Yes For the Purpose of:: To decrease pain, To decrease swelling/inflammation, To improve nutrient delivery to tissue, To increase oxygenation perfusion Thank you for the opportunity to evaluate your patient. For Medicare and Medicare HMO plans, please review the plan of care and approve it. It will need to be FAXED BACK to us at [phone] for Medicare purposes. For Medicare only, by signing this I certify the plan of care. Please let me know if there are questions or concerns regarding this plan of care. Physician Signature: Date:
--- NOTE | 2022-04-28 15:49 | HP.PTDCSUM ---
It has been my pleasure to treat ANUSHA ALDRICH referred by Mike Frost PA-C, with the diagnosis of UNILATERAL PRIMARY OSTEOARTHITIS for a total of 11 visit(s). Discharge Date: 04/28/22 Please see the following information for a summary of their discharge status. Subjective: Doing good ready for d/c Left Knee Pain Intensity (Out of 10): 3 % Improvement: 60 Objective/Function: GAIT: reciprocal pattern mild. MMT( PEAK FORCE): QUADS 29.9,HAMS 17.2. AROM: 0-125 SUPINE KNEE FLEXION. GIRTH PATTELLA: 42.O. STAIRS: ALTERANATING STEPS WITH RAILS 6 Goal 1:: Patient to be I with HEP TKA Goal Progress: Goal Met Goal 2:: Patient to improve Tug score under < 10sec to improve function Goal Progress: Goal Met Goal 3:: Patient to normalize gait with/without cane community distance Goal Progress: Goal Met Goal 4:: Patient to improve AROM supine knee flexion 0-115 or > degrees to improve ability to ascend/descend stairs. Goal Progress: Goal Met Goal 5:: Patient to improve peak force quads/hams by 15 to improve function and gait Goal Progress: Goal Met Goal 6:: Patient to improve LFES score by 10 points to improve QOL. Goal Progress: Goal Met Plan: D/C Discharge Comments: HEP AND GYM If there are questions or concerns regarding this patient's physical therapy, please feel free to call me at [phone]. Thank you for the referral of this patient. Sincerely, Moody Conroy, PT, Cert MDT, OCS Balance/Gait/Functional tests - Balance/Special Test Scores Tug Test: <20 sec.=mostly independent WOMAC Total Score: 15 WOMAC Percentage: 84.3800
--- NOTE | 2022-05-04 13:45 | HP.PTREVAL ---
Mike Frost PA-C, It has been my pleasure to treat ANUSHA ALDRICH over the last 12 visits for UNILATERAL PRIMARY OSTEOARTHITIS. Please see the progress note below for an update on the physical therapy plan of care! Subjective: PATIENT REPORTS SHE WAS DOING GOOD UNTIL SUNDAY. SHE REPORTS ONSET OF SHARP SHOOTING L KNEE PAINS WITH MVMT AND GREAT DIFFICULTY LIFTING L LE. SHE REPORTS SHE WOKE UP WITH IT HURTING Sunday FOR NO APPARENT REASON. CALLED DR. HAMILTON OFFICE Sunday. WE REC'D ORDER TO CONTINUE PT YESTERDAY SHE REPORTS SHE TOLD THEM SUNDAY EVENING HER L FOOT SWELLED AND NURSE TOLD HER TO DO A LOT OF ICING. SUNDAY AND SUNDAY ALMOST COULDN'T GET UP AND DOWN FROM [place]ET BUT STARTED GETTING BETTER YESTERDAY. WORSE AGAIN TODAY BUT NOT BAD SUNDAY. DOING HEP TOLERATED. BIRD WATCHING . PENTECOSTALISM SUNDAY BUT REALLY NO APPARENT REASON FOR INCREASED PAIN. CAME IN YESTERDAY AND DID NUSTEP A LITTLE BIT. ALSO DID A LITTLE LEG PRESS. Objective/Function: PATIENT WITH INCREASED PAIN, TENDERNESS AND DECREASED L KNEE ROM TODAY FOR NO APPARENT REASON. SHE COMMUNICATED A GOOD UNDERSTANDING OF ALL INSTRUCTIONS AFTER GIVEN. PRESENT 2ND HALF OF SESSION. Plan Plan: RESUME PT FOR TKR TOLERATED. MEASURE CIRCUMFERENCE OF L KNEE AT PATELLA NEXT VISIT AND COMPARE IT TO MEASUREMENT 04/28. MEASURE KNEE ROM EA VISIT. Balance/Gait/Functional tests - Balance/Special Test Scores Tug Test: <10 sec.=free mobile WOMAC Total Score: 15 WOMAC Percentage: 84.3800 Goals Goal 1:: Patient to be I with HEP TKA Goal Time Frame: 4-6 Weeks Goal Progress: Goal Met Goal 2:: Patient to improve Tug score under < 10sec to improve function Goal Time Frame: 4-6 Weeks Goal Progress: Goal Met Goal 3:: Patient to normalize gait with/without cane community distance Goal Time Frame: 4-6 Weeks Goal Progress: Goal Met Goal 4:: Patient to improve AROM supine knee flexion 0-115 or > degrees to improve ability to ascend/descend stairs. Goal Time Frame: 4-6 Weeks Goal Progress: Goal Met Goal 5:: Patient to improve peak force quads/hams by 15 to improve function and gait Goal Time Frame: 4-6 Weeks Goal Progress: Goal Met Goal 6:: Patient to improve LFES score by 10 points to improve QOL. Goal Time Frame: 4-6 Weeks Goal Progress: Goal Met Anticipated Interventions Patient/Client Instruction: Educate patient on: Condition, Plan of Care For the Purpose of:: To decrease pain, To increase ROM, To improve muscle performance and motor function, To increase tolerance to activity/condition/position, To improve ability of physical actions for home/community/work/leisure, To improve gait and locomotor functions, To increase flexibility/ROM, To improve endurance, To improve balance, To improve tolerance to ADL's Therapeutic Exercise to Include: Strength training, Endurance training, Balance training, Postural training, Gait and locomotor training, Passive ROM, Active ROM Comment: quads/hams/hip For the Purpose of:: To decrease pain, To increase ROM, To improve muscle performance and motor function, To improve ability to perform ADL's, To increase tolerance to activity/condition/position, To improve ability of physical actions for home/community/work/leisure, To improve gait and locomotor functions, To increase flexibility/ROM, To improve balance, To improve safety with gait, To improve tolerance to ADL's Cryotherapy (ice pack, ice massage): Yes Vasopneumatic device: Yes For the Purpose of:: To decrease pain, To decrease swelling/inflammation, To improve nutrient delivery to tissue, To increase oxygenation perfusion Please do not hesitate to contact me at [phone] by phone or if you have questions or concerns regarding this new plan of care! Sincerely, Olivia Villanueva, PT, Cert MDT
--- NOTE | 2022-06-02 15:47 | HP.PTDCSUM ---
It has been my pleasure to treat ANUSHA ALDRICH referred by Mike Frost PA-C, with the diagnosis of UNILATERAL PRIMARY OSTEOARTHITIS for a total of 19 visit(s). Discharge Date: 06/02/22 Please see the following information for a summary of their discharge status. Subjective: PATIENT REPORTS SHE IS A LOT STRONGER AND CAN DO A LOT MORE THINGS. SHE ALSO REPORTS HER BALANCE IS IMPROVED. LESS PAIN. FOLLOW UP WITH DR. PIÑA PENDING JUN 19 2022. EVERYTHING IS SO MUCH IMPROVED. STATES SHE FEELS READY TO BE DISCHARGE. Left Knee Pain Intensity (Out of 10): 0 % Improvement: 75 Objective/Function: PATIENT WAS SEEN TODAY FOR RE-ASSESSMENT OF PROGRESS TOWARD THE SET PT GOALS AND THE NEED FOR FURTHER PHYSICAL THERAPY VS READINESS FOR DISCHARGE. ALL GOALS HAVE BEEN MET AND PATIENT IS APPROPRIATE FOR D/C TO INDEP EX. SHE IS AGREEABLE. UPON EXAM TODAY HER L KNEE AROM IN SUPINE WITH A HEEL SLIDE = FULL EXT TO 123 DEG FLEXION. KNEE CIRCUMFERENCE AT PATELLA (OVER JEANS) IS 43.5 CM. SHE DEMO'S INDEP GAIT WITH GOOD CADANCE AND WITHOUT ASSISTIVE DEVICE OR GROSS DEVIATION NOTED ON LEVEL SURFACES. Goal 1:: Patient to be I with HEP TKA Goal Progress: Goal Met Goal 2:: Patient to improve Tug score under < 10sec to improve function Goal Progress: Goal Met Goal 3:: Patient to normalize gait with/without cane community distance Goal Progress: Goal Met Goal 4:: Patient to improve AROM supine knee flexion 0-115 or > degrees to improve ability to ascend/descend stairs. Goal Progress: Goal Met Goal 5:: Patient to improve peak force quads/hams by 15 to improve function and gait Goal Progress: Goal Met Goal 6:: Patient to improve LFES score by 10 points to improve QOL. Plan: D/C TO INDEP EX. PATIENT IS AGREEABLE. Discharge Comments: HEP AND GYM If there are questions or concerns regarding this patient's physical therapy, please feel free to call me at [phone]. Thank you for the referral of this patient. Sincerely, Olivia Villanueva, PT, Cert MDT Balance/Gait/Functional tests - Balance/Special Test Scores Lower Extremity Functional Score: 50 Tug Test: <10 sec.=free mobile WOMAC Total Score: 19 WOMAC Percentage: 79.3500
== END 2022-06-02 19:00 | disposition home or self-care (01) ==
LOC: PT 15:00
PROVIDERS: PCP Family Medicine Geriatric Medicine; Referring Provider Physician Assistant Surgical; Visit Provider Physician Assistant Surgical
DX: M17.12 Unilateral primary osteoarthritis, left knee (principal); Z96.652 Presence of left artificial knee joint; M25.462 Effusion, left knee
CPT/HCPCS: 97110; 97113; 97162; 97164; 97530

== ENCOUNTER → 2022-07-27 | Outpatient (CLI) | payer MEDICARE, SELFPAY ==
[2022-07-27 10:05] LABS: Absolute Lymphocyte Count 1.61 X10^3/uL (0.83-4.51); Absolute Neutrophil Count 3.8 X10^3/uL (2.0-7.7); Basophil# 0.06 X10^3/uL; Eosinophil# 0.13 X10^3/uL; Eosinophils% 2.1 % (0-5); Hematocrit 44.8 % (37-47); Hemoglobin 14.4 g/dL (12.0-15.0); Lymphocyte # 1.61 X10^3/ul (0.83-4.51); Lymphocyte % 26.5 % (19-41); Mean Corp Hgb Conc 32.1 g/dL (32-36); Mean Corpuscular Hgb 31.3 pg (27.0-32.0); Mean Corpuscular Volume 97.4 fL (81-99); Mean Platelet Vol. 11.1 fl (6.2-12.0); Monocyte# 0.43 X10^3/uL; Monocyte% 7.1 % (0-10); NRBC Flagged by Analyzer 0 % (0-5); Neutrophil # 3.83 X10^3/uL (2.7-7.7); Platelet Count 265 K/mm3 (150-450); RBC Distribution Width CV 13.8 % (11.6-14.6); White Blood Count 6.1 K/mm3 (4.4-11.0)
[2022-07-27 10:40] LABS: AST(SGOT) 19 U/L (15-37); Alanine Aminotransfer ALT/SGPT 30 U/L (13-56); Albumin, Serum 3.8 g/dL (3.2-5.0); Alkaline Phosphatase 92 U/L (45-117); Anion Gap 8 (5-15); BUN 16 mg/dL (7-18); BUN/Creat Ratio 22.6 RATIO (10-20); Calcium,Total 9.5 mg/dL (8.5-10.1); Chloride 104 mmol/L (98-107); Creatinine, Serum 0.71 mg/dL (0.55-1.02); EST Glomerular Filtration Rate 85 mL/min (>60); Est Glom Filt Rate - Afr Amer 103 mL/min (>60); Globulin 3.9 g/dL (2.2-4.2); Glucose 123 mg/dL (74-106); Potassium 3.4 mmol/L (3.5-5.1); Protein, Total 7.7 g/dL (6.4-8.2); Sodium Level 141 mmol/L (136-145)
== END | disposition home or self-care (01) ==
LOC: MTLAB 08:41
PROVIDERS: PCP Family Medicine Geriatric Medicine; Referring Provider Internal Medicine Rheumatology; Visit Provider Internal Medicine Rheumatology
DX: M06.4 Inflammatory polyarthropathy (principal); Z79.899 Other long term (current) drug therapy; M19.041 Primary osteoarthritis, right hand; M17.0 Bilateral primary osteoarthritis of knee; K21.9 Gastro-esophageal reflux disease without esophagitis; E03.9 Hypothyroidism, unspecified; I10 Essential (primary) hypertension; F32.A Depression, unspecified; M47.897 Other spondylosis, lumbosacral region
CPT/HCPCS: 36415; 80053; 85025

== ENCOUNTER → 2022-09-04 | Outpatient (CLI) | payer MEDICARE, SELFPAY ==
[2022-09-04 17:13] LABS: Absolute Lymphocyte Count 1.94 X10^3/uL (0.83-4.51); Absolute Neutrophil Count 5.1 X10^3/uL (2.0-7.7); Basophil# 0.09 X10^3/uL; Basophil% 1.1 % (0-1); Eosinophil# 0.27 X10^3/uL; Eosinophils% 3.3 % (0-5); Hematocrit 43.2 % (37-47); Hemoglobin 14.3 g/dL (12.0-15.0); Lymphocyte # 1.94 X10^3/ul (0.83-4.51); Mean Corp Hgb Conc 33.1 g/dL (32-36); Mean Corpuscular Hgb 32.3 pg (27.0-32.0); Mean Corpuscular Volume 97.5 fL (81-99); Mean Platelet Vol. 11.6 fl (6.2-12.0); Monocyte% 8.7 % (0-10); NRBC Flagged by Analyzer 0 % (0-5); Neutrophil # 5.06 X10^3/uL (2.7-7.7); Neutrophil % 62.5 % (47-70); Platelet Count 269 K/mm3 (150-450); RBC Distribution Width CV 14.1 % (11.6-14.6); RBC Distribution Width SD 50.5 fl (35.1-43.9); Red Blood Count 4.43 M/mm3 (4.2-5.4); White Blood Count 8.1 K/mm3 (4.4-11.0)
[2022-09-04 17:35] LABS: Vitamin D,25 Hydroxy 71.4 ng/mL
[2022-09-04 17:51] LABS: ALB/GLOB Ratio 1.1 RATIO (0.9-2.4); AST(SGOT) 20 U/L (15-37); Alanine Aminotransfer ALT/SGPT 33 U/L (13-56); Alkaline Phosphatase 89 U/L (45-117); Anion Gap 8 (5-15); BUN 16 mg/dL (7-18); BUN/Creat Ratio 20.8 RATIO (10-20); Calcium,Total 9.7 mg/dL (8.5-10.1); Chloride 105 mmol/L (98-107); Creatinine, Serum 0.77 mg/dL (0.55-1.02); EST Glomerular Filtration Rate 77 mL/min (>60); Est Glom Filt Rate - Afr Amer 94 mL/min (>60); Globulin 3.8 g/dL (2.2-4.2); Glucose 128 mg/dL (74-106); Potassium 3.9 mmol/L (3.5-5.1); Protein, Total 7.8 g/dL (6.4-8.2); Sodium Level 139 mmol/L (136-145); Thyroid Stim Hormone (TSH) 0.43 uIU/mL (0.358-3.74)
== END | disposition home or self-care (01) ==
LOC: POLAB3 12:29
PROVIDERS: PCP Family Medicine Geriatric Medicine; Visit Provider Family Medicine Geriatric Medicine
DX: I10 Essential (primary) hypertension (principal); E55.9 Vitamin D deficiency, unspecified
CPT/HCPCS: 36415; 80053; 82306; 84443; 85025

== ENCOUNTER → 2022-09-06 | Outpatient (CLI) | payer MEDICARE, SELFPAY | END | disposition home or self-care (01) | LOC: PSN 09:29 | PROVIDERS: PCP Family Medicine Geriatric Medicine; Referring Provider Family Medicine Geriatric Medicine; Visit Provider Family Medicine Geriatric Medicine | DX: R68.83 Chills (without fever) (principal) | CPT/HCPCS: 87635; 87804; 87807; C9803; U0003; U0005 ==